=== PATIENT | male | born 1940 | race Caucasian/White ===

== ENCOUNTER 2017-05-03 20:46 | Inpatient (IN) | payer MEDICAID, MEDICARE ==
[2017-05-03 23:06] LABS: Hematocrit 41 % (42-52); Hemoglobin 13.8 g/dl (14.0-18.0); Mean Corpuscular HGB Conc 34 g/dl (31-36); Mean Corpuscular Hemoglobin 31 pg (27-31); Mean Corpuscular Volume 91 fL (80-94); Mean Platelet Volume 8 um3 (7.4-10.4); Red Blood Count 4.48 10^6/ul (4.0-5.4); Red Cell Distribution Width 15 % (10.5-15); White Blood Count 7.9 10^3/ul (3.5-10.8)
[2017-05-03 23:20] LABS: BUN/Creatinine Ratio 31.4 (8-20); Calcium 9.7 mg/dL (8.6-10.3); EGFR African American 88.3 (>60); EGFR Non-African American 68.7 (>60); Globulin 2.6 g/dL (2-4); Magnesium 2.3 mg/dL (1.9-2.7); Potassium 3.7 mmol/L (3.5-5.0); Total Bilirubin 0.8 mg/dL (0.2-1.0); Total Protein 6.6 g/dL (6.4-8.9)
[2017-05-03 23:29] LABS: Troponin I 0.04 ng/mL (<0.04)
[2017-05-03 23:30] LABS: TSH (Thyroid Stimulating Horm) 0.52 mcIU/mL (0.34-5.60)
[2017-05-03] MEDS ORDERED: Ondansetron INJ* 2 MG/ML VIAL IV ONE (23:58)
[2017-05-03] MEDS ORDERED: NS 0.9% 1000 ML* 1,000 ML IV ONE (23:58)
[2017-05-03] MEDS ORDERED: Pantoprazole IV* 40 MG IV ONE (23:59)
[2017-05-04] MEDS ORDERED: Iohexol 300* (CONTRAST) 10 ML SDV IV ONE (00:41)
[2017-05-04 03:07] LABS: Urine Bacteria Absent (Absent); Urine Bilirubin Negative (Negative); Urine Glucose Negative (Negative); Urine Nitrite Negative (Negative)
[2017-05-04 03:18] LABS: Troponin I 0.07 ng/mL (<0.04)
--- NOTE | 2017-05-04 04:36 | ED ---
Dave Gao Benjamin, scribed for Lorna Haynes MD on 05/04/17 at 0023 . Complex/Multi-Sys Presentation - HPI Summary HPI Summary: 77yo male c/o unable to swallow and keep things down. Symptoms started since December and has been gradually getting worse. Pt also reports weight loss of 20lb since December and isnt making much stool. FHx of colon CA. 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 Negative: Nausea, Vomiting - Allergies/Home Medications Allergies/Adverse Reactions: Allergies Allergy/AdvReac Type Severity Reaction Status Date / Time No Known Allergies Allergy Verified 05/03/17 21:01 Home Medications: Home Medications NK [No Home Medications Reported] 05/03/17 [History Confirmed 05/03/17] PMH/Surg Hx/FS Hx/Imm Hx Infectious Disease History: No Infectious Disease History: Denies: Traveled Outside the [place] in Last 30 Days - Family History Known Family History: Positive: Other - colon CA - Social History Occupation: Retired Lives: With Family Alcohol Use: Occasionally Substance Use Type: Reports: None Smoking Status (MU): Unknown if Ever Smoked Review of Systems Positive: Other - recent significant weight loss Eyes: Negative ENT: Other - unable to swallow Cardiovascular: Negative Respiratory: Negative Positive: Other - constipation; unable to keep things down. Negative: Diarrhea , Nausea Genitourinary: Negative Positive: no symptoms reported Musculoskeletal: Negative Skin: Negative Positive: Weakness Psychological: Normal All Other Systems Reviewed And Are Negative: Yes Physical Exam Triage Information Reviewed: Yes Vital Signs On Initial Exam: Initial Vitals Temp Pulse Resp BP Pulse Ox 97.1 F 90 16 105/85 99 05/03/17 20:58 05/03/17 20:58 05/03/17 20:58 05/03/17 20:58 05/03/17 20:58 Vital Signs Reviewed: Yes Appearance: Positive: Well-Appearing, No Pain Distress, Cachectic Skin: Positive: Warm, Skin Color Reflects Adequate Perfusion, Dry Head/Face: Positive: Normal Head/Face Inspection Eyes: Positive: EOMI, JULIANNE, Conjunctiva Clear ENT: Positive: Normal ENT inspection, Hearing grossly normal Neck: Positive: Supple, Nontender Respiratory/Lung Sounds: Positive: Clear to Auscultation, Breath Sounds Present Cardiovascular: Positive: RRR, Pulses are Symmetrical in both Upper and Lower Extremities Abdomen Description: Positive: Nontender, Soft Bowel Sounds: Positive: Present Musculoskeletal: Positive: Strength/ROM Intact Neurological: Positive: Sensory/Motor Intact, Alert, Oriented to Person Place, Time Psychiatric: Positive: Affect/Mood Appropriate - Dannie Coma Scale Coma Scale Total: 15 Diagnostics - Vital Signs Vital Signs Temp Pulse Resp BP Pulse Ox 05/03/17 21:02 97.1 F 90 16 105/85 99 05/03/17 20:58 97.1 F 90 16 105/85 99 - Laboratory Lab Results: Lab Results 05/03/17 05/03/17 05/03/17 Range/Units 22:52 22:52 22:52 WBC 7.9 (3.5-10.8) 10^3/ul RBC 4.48 (4.0-5.4) 10^6/ul Hgb 13.8 L (14.0-18.0) g/dl Hct 41 L (42-52) % MCV 91 (80-94) fL MCH 31 (27-31) pg MCHC 34 (31-36) g/dl RDW 15 (10.5-15) % Plt Count 325 (150-450) 10^3/ul MPV 8 (7.4-10.4) um3 Neut % (Auto) 76.8 (38-83) % Lymph % (Auto) 16.4 L (25-47) % Luce % (Auto) 6.0 (1-9) % Eos % (Auto) 0.2 (0-6) % Baso % (Auto) 0.6 (0-2) % Absolute Neuts (auto) 6.1 (1.5-7.7) 10^3/ul Absolute Lymphs (auto) 1.3 (1.0-4.8) 10^3/ul Absolute Monos (auto) 0.5 (0-0.8) 10^3/ul Absolute Eos (auto) 0 (0-0.6) 10^3/ul Absolute Basos (auto) 0 (0-0.2) 10^3/ul Absolute Nucleated RBC 0 10^3/ul Nucleated RBC % 0 Sodium 141 (133-145) mmol/L Potassium 3.7 (3.5-5.0) mmol/L Chloride 104 (101-111) mmol/L Carbon Dioxide 24 (22-32) mmol/L Anion Gap 13 H (2-11) mmol/L BUN 33 H (6-24) mg/dL Creatinine 1.05 (0.67-1.17) mg/dL Est GFR ( Amer) 88.3 (>60) Est GFR (Non-Af Amer) 68.7 (>60) BUN/Creatinine Ratio 31.4 H (8-20) Glucose 108 H (70-100) mg/dL Lactic Acid 1.2 (0.5-2.0) mmol/L Calcium 9.7 (8.6-10.3) mg/dL Magnesium 2.3 (1.9-2.7) mg/dL Total Bilirubin 0.80 (0.2-1.0) mg/dL AST 17 (13-39) U/L ALT 16 (7-52) U/L Alkaline Phosphatase 38 (34-104) U/L Troponin I 0.04 H* (<0.04) ng/mL Total Protein 6.6 (6.4-8.9) g/dL Albumin 4.0 (3.2-5.2) g/dL Globulin 2.6 (2-4) g/dL Albumin/Globulin Ratio 1.5 (1-3) TSH 0.52 (0.34-5.60) mcIU/mL Result Diagrams: 05/03/17 22:52 05/03/17 22:52 Lab Statement: Any lab studies that have been ordered have been reviewed, and results considered in the medical decision making process. - CT CTW A/P CT Interpretation: Positive (See Comments) - Diffuse esophageal distention with debris and contrast may be secondary to achalasia or an obstructing mass at the GE junction. Follow up with endoscopy is recommended. Necrotic appearing portacaval lymph node is very suspicious for metastasis. Old granulomatous disease. Multiple nonobstructing bilateral renal stones. Small hepatic and splenic hypodensities are not clearly cysts, and can be further evaluated with Ultrasound there. CT Interpretation Completed By: Radiologist - ED physician has reviewed this radiology report and agrees. Complex Multi-Symp Course/Dx Course Of Treatment: Reviewed pts medication and allergy lists. Blood pressure noted. Discussed with Dr. Boateng (Hospitalist) at [address] Cash(GI) at 0414 hour. - Diagnoses Provider Diagnoses: Esophageal dilatation Discharge - Discharge Plan Condition: Stable Disposition: ADMITTED TO [facility] documentation as recorded by the Dave chance Benjamin accurately reflects the service I personally performed and the decisions made by me, Lorna Haynes MD.
--- NOTE | 2017-05-04 04:53 | HP ---
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 He does admit to some intermittent epigastric discomfort, but no distinct relation to activity or eating. He if very stoic and evasive in his answers. He states at his peak he weighted ~80kg, but is now ~50kg. He cannot state over what time frame this weight loss has occurred. His nephew is present and offers that his eating problems were noticed around December and have accelerated over the past 2 months. Mr Obregon denies exertional chest pain, SOB, nausea, and sweats. He currently denies discomfort. 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 Father passed in his 80s of lung CA. Sister: healthy ROS: as above, otherwise reviewed and all were negative vitals: Vital Signs Temp 36.2 C 05/03/17 21:02 Pulse 60 05/04/17 06:00 Resp 16 05/03/17 21:02 BP 113/66 05/04/17 06:00 Pulse Ox 98 05/04/17 06:00 Intake & Output 05/03/17 05/03/17 05/04/17 11:59 23:59 11:59 Intake Total 1000 Balance 1000 Weight 51.664 kg 51.256 kg Intake: IV Fluids 1000 Constitutional: NAD, normally developed, cachectic elderly white male HEENM: atraumatic; sclera/conjunctiva: non-icteric/clear; blephara: sunken; hearing: clinically intact; oropharynx: clear, mucosa tacky Neck: soft tissue: non-tender; thyroid: normal Pulmonary: clear to auscultation bilaterally, good aeration, no accessory muscle use CV: RR/RR, normal S1S2, no carotid bruit, no jugular venous distention, 2+ B DP/ PT, no edema Abdominal: soft, non-distended, diffuse mild discomfort, no rebound/guarding/ rigidity, normoactive bowel sounds, no hepatosplenomegaly or masses, no costovertebral angle tenderness Musculoskeletal: general: grossly intact; gait: stable Integumental: normal appearance and texture of exposed skin Psychiatric orientation: AA&O to PPS affect: flat/stoic mood: suspicious eye contact: fair to good content: evasive responses: mild to moderately slowed insight: fair to poor Testing: Lab Results 05/03/17 05/03/17 05/03/17 Range/Units 22:52 22:52 22:52 WBC 7.9 (3.5-10.8) 10^3/ul RBC 4.48 (4.0-5.4) 10^6/ul Hgb 13.8 L (14.0-18.0) g/dl Hct 41 L (42-52) % MCV 91 (80-94) fL MCH 31 (27-31) pg MCHC 34 (31-36) g/dl RDW 15 (10.5-15) % Plt Count 325 (150-450) 10^3/ul MPV 8 (7.4-10.4) um3 Neut % (Auto) 76.8 (38-83) % Lymph % (Auto) 16.4 L (25-47) % [place] % (Auto) 6.0 (1-9) % Eos % (Auto) 0.2 (0-6) % Baso % (Auto) 0.6 (0-2) % Absolute Neuts (auto) 6.1 (1.5-7.7) 10^3/ul Absolute Lymphs (auto) 1.3 (1.0-4.8) 10^3/ul Absolute Monos (auto) 0.5 (0-0.8) 10^3/ul Absolute Eos (auto) 0 (0-0.6) 10^3/ul Absolute Basos (auto) 0 (0-0.2) 10^3/ul Absolute Nucleated RBC 0 10^3/ul Nucleated RBC % 0 Sodium 141 (133-145) mmol/L Potassium 3.7 (3.5-5.0) mmol/L Chloride 104 (101-111) mmol/L Carbon Dioxide 24 (22-32) mmol/L Anion Gap 13 H (2-11) mmol/L BUN 33 H (6-24) mg/dL Creatinine 1.05 (0.67-1.17) mg/dL Est GFR ( Amer) 88.3 (>60) Est GFR (Non-Af Amer) 68.7 (>60) BUN/Creatinine Ratio 31.4 H (8-20) Glucose 108 H (70-100) mg/dL Lactic Acid 1.2 (0.5-2.0) mmol/L Calcium 9.7 (8.6-10.3) mg/dL Magnesium 2.3 (1.9-2.7) mg/dL Total Bilirubin 0.80 (0.2-1.0) mg/dL AST 17 (13-39) U/L ALT 16 (7-52) U/L Alkaline Phosphatase 38 (34-104) U/L Troponin I 0.04 H* (<0.04) ng/mL Total Protein 6.6 (6.4-8.9) g/dL Albumin 4.0 (3.2-5.2) g/dL Globulin 2.6 (2-4) g/dL Albumin/Globulin Ratio 1.5 (1-3) TSH 0.52 (0.34-5.60) mcIU/mL Urine Color Urine Appearance Urine pH (5-9) Ur Specific [place] (1.010-1.030) Urine Protein (Negative) Urine Ketones (Negative) Urine Blood (Negative) Urine Nitrate (Negative) Urine Bilirubin (Negative) Urine Urobilinogen (Negative) Ur Leukocyte Esterase (Negative) Urine WBC (Auto) (Absent) Urine RBC (Auto) (Absent) Urine Bacteria (Absent) Hyaline Casts (Absent) Urine Glucose (Negative) 05/04/17 05/04/17 05/04/17 Range/Units 02:41 02:51 06:26 WBC (3.5-10.8) 10^3/ul RBC (4.0-5.4) 10^6/ul Hgb (14.0-18.0) g/dl Hct (42-52) % MCV (80-94) fL MCH (27-31) pg MCHC (31-36) g/dl RDW (10.5-15) % Plt Count (150-450) 10^3/ul MPV (7.4-10.4) um3 Neut % (Auto) (38-83) % Lymph % (Auto) (25-47) % [place] % (Auto) (1-9) % Eos % (Auto) (0-6) % Baso % (Auto) (0-2) % Absolute Neuts (auto) (1.5-7.7) 10^3/ul Absolute Lymphs (auto) (1.0-4.8) 10^3/ul Absolute Monos (auto) (0-0.8) 10^3/ul Absolute Eos (auto) (0-0.6) 10^3/ul Absolute Basos (auto) (0-0.2) 10^3/ul Absolute Nucleated RBC 10^3/ul Nucleated RBC % Sodium (133-145) mmol/L Potassium (3.5-5.0) mmol/L Chloride (101-111) mmol/L Carbon Dioxide (22-32) mmol/L Anion Gap (2-11) mmol/L BUN (6-24) mg/dL Creatinine (0.67-1.17) mg/dL Est GFR ( Amer) (>60) Est GFR (Non-Af Amer) (>60) BUN/Creatinine Ratio (8-20) Glucose (70-100) mg/dL Lactic Acid (0.5-2.0) mmol/L Calcium (8.6-10.3) mg/dL Magnesium (1.9-2.7) mg/dL Total Bilirubin (0.2-1.0) mg/dL AST (13-39) U/L ALT (7-52) U/L Alkaline Phosphatase (34-104) U/L Troponin I 0.07 H* 0.35 H* (<0.04) ng/mL Total Protein (6.4-8.9) g/dL Albumin (3.2-5.2) g/dL Globulin (2-4) g/dL Albumin/Globulin Ratio (1-3) TSH (0.34-5.60) mcIU/mL Urine Color Yellow Urine Appearance Cloudy Urine pH 5.0 (5-9) Ur Specific [place] 1.040 H (1.010-1.030) Urine Protein Negative (Negative) Urine Ketones 1+ H (Negative) Urine Blood 1+ H (Negative) Urine Nitrate Negative (Negative) Urine Bilirubin Negative (Negative) Urine Urobilinogen Negative (Negative) Ur Leukocyte Esterase Negative (Negative) Urine WBC (Auto) Trace(0-5/hpf) (Absent) Urine RBC (Auto) 3+(>10/hpf) H (Absent) Urine Bacteria Absent (Absent) Hyaline Casts Present H (Absent) Urine Glucose Negative (Negative) ECG, personally reviewed: NSR rate 67, no ischemia, non-specific infero-lateral ST-T flattening CT chest/abd/pel W, personally reviewed: IMPRESSION: Diffuse esophageal distention with debris and contrast may be secondary to achalasia or an obstructing mass at the GE junction. Follow up with endoscopy is recommended. Necrotic appearing portacaval lymph node is very suspicious for metastasis. Old granulomatous disease. Multiple non-obstructing bilateral renal stones. Small hepatic and splenic hypodensities are not clearly cysts, and can be further evaluated with ultrasound. Impression: 77M with esophagogastric obstruction ? 2nd achalasia vs tumor with necrotic appearing portacaval lymph node highly suspicious for metastasis DIAGNOSIS & PLAN Primary esophagogastric obstruction ? 2nd achalasia vs tumor : necrotic appearing portacaval lymph node highly suspicious for metastasis : NPO : IVFs : GI consult in AM : supportive care elevating troponin : denies cardiac complaint : signed out to Aline Dunne MD malnutrition : nutrition consult : check pre-albumin Secondary seizure disorder : convert PO levetiracetam to IV Admission Rational: inpatient for a very patient at risk of rapid/terminal decompensation; inappropriate for outpatient setting DVTp: SCDs Code Status: full HCP: sister
[2017-05-04] MEDS ORDERED: LORazepam INJ* 2 MG/ML 1 ML VIAL IV PRN (05:52)
[2017-05-04] MEDS ORDERED: Ondansetron INJ* 2 MG/ML VIAL IV PRN (05:52)
[2017-05-04] MEDS ORDERED: Albuterol 2.5 MG/3 ML NEB.SOL* (0.083%) INH PRN (05:52)
--- NOTE | 2017-05-04 08:37 | RAD ---
INDICATION: 20 pound weight loss, difficulty eating. COMPARISON: There are no prior studies available for comparison. TECHNIQUE: A CT scan of the chest, abdomen and pelvis was performed with intravenous and oral contrast following intravenous injection of 68 ml of Omnipaque 300 nonionic contrast. Contiguous axial sections were obtained from the lung apices through the symphysis pubis. Images were reconstructed in the coronal and sagittal planes. FINDINGS: The lungs are hyperinflated. There is a 0.8 cm nodule present in the right upper lobe which is calcified most consistent with old granulomatous disease. There is a small faint reticular nodular infiltrate in the right middle lobe. There is a calcified 0.6 cm nodule in the left lower lobe also consistent with old granulomatous disease. There are calcified mediastinal lymph nodes in the precarinal region and in the right hilum also consistent with old granulomatous disease. No significant enlarged mediastinal or hilar lymph nodes are seen. There are multiple bilateral thyroid nodules measuring up to 1.8 cm in size. The esophagus is diffusely distended and filled with contrast and debris. The distal esophageal wall is thickened at the gastroesophageal junction. Differential diagnosis would include a distal esophageal mass versus achalasia. Recommend endoscopy. The heart is within normal limits in size. No pericardial effusion is present. The aorta is slightly tortuous. No aneurysm is present. There is mild calcific plaque. The liver and spleen are normal in size. There are couple small hypodense lesions in the left hepatic lobe measuring up to 7 mm in size which are too small to characterize by CT possibly representing cysts. There is a small 0.5 cm hypodense splenic lesion also possibly representing a cyst although nonspecific. No calcified gallstones are seen. There is a 2.1 x 1.8 cm cystic lesion present within the pancreatic head. No pancreatic ductal distention is present. The kidneys and adrenal glands are normal in size. There are multiple bilateral renal calculi measuring up to 1 cm in size in the right kidney. No hydronephrosis is seen. There are several small bilateral renal cysts. In addition there is a hyperdense nodule arising laterally from the right kidney at the junction of the mid and lower poles measuring 1.2 cm in size. This would be most consistent with a complex cyst or solid nodule. The prostate gland is enlarged measuring 5.4 cm in transverse dimension. The aorta is normal in caliber and there is mild calcific plaque present. No significant enlarged retroperitoneal lymph nodes are seen. The stomach, small and large bowel appear nondistended. There is moderate descending and sigmoid diverticulosis. There is no evidence for diverticulitis or colitis. The patient is status post appendectomy by history. No free intraperitoneal air or fluid is seen. There are multiple old left posterior lateral rib fractures. There is an old fracture of the manubrium. There are old fractures of upper and lower dorsal vertebral bodies. There is an old [id number] compression fracture of the inferior endplate of the L2 vertebral body. IMPRESSION: 1. DIFFUSE DILATATION OF THE ESOPHAGUS TO THE LEVEL OF THE GASTROESOPHAGEAL JUNCTION. AT THAT LEVEL THERE IS AN ESOPHAGEAL WALL THICKENING. DIFFERENTIAL DIAGNOSIS WOULD INCLUDE AN ESOPHAGEAL MASS VERSUS ACHALASIA. RECOMMEND ENDOSCOPY FOR FURTHER EVALUATION. 2. MULTIPLE BILATERAL THYROID NODULES. RECOMMEND A FOLLOW-UP THYROID ULTRASOUND FOR FURTHER EVALUATION. 3. FINDINGS CONSISTENT WITH OLD GRANULOMATOUS DISEASE. 4. SMALL HYPODENSE HEPATIC AND SPLENIC LESIONS TOO SMALL TO CHARACTERIZE BY CT POSSIBLY REPRESENTING CYSTS. RECOMMEND A FOLLOW-UP HEPATIC AND SPLENIC ULTRASOUND FOR FURTHER EVALUATION. 5. CYSTIC LESION IN THE PANCREATIC HEAD. RECOMMEND AN MRI OF THE PANCREAS WITHOUT AND WITH CONTRAST FOR FURTHER EVALUATION. 6. MULTIPLE BILATERAL NONOBSTRUCTING RENAL CALCULI. 7. HYPERDENSE RIGHT RENAL LESION CONSISTENT WITH A COMPLEX CYST OR SOLID ABNORMALITY. RECOMMEND A RENAL ULTRASOUND FOR FURTHER EVALUATION.
[2017-05-04] MEDS: Famotidine IV* 10 MG/ML 2 ML (20 mg) IV SLOW PU SCH ×2 (10:33→22:34)
--- NOTE | 2017-05-04 12:51 | ECHO ---
Patient: ERIC BA [facility] Rec#: [id number] : 1940 Date: 05/04/2017 Age: 77y Height: 177.8 cm / 70.0 in Weight: 51.3 kg / 113.1 lbs Sex: M BSA: 1.6 Room#: [facility] Admit Date#: 05/04/2017 Type: Inpatient Referring: Joseph Dunne MD Reading: Bert Estrada MD Senior Power Scheduler: Radha Alcantara RN RDCS CC: Esther Montano MD Transthoracic Echocardiogram Indication: Elevated troponin level BP: 113/66 HR: 52 Rhythm: Bradycardia Findings History: Seizure disorder, esophagogastric obstruction secondary to achalasia vs. tumor, malnutrition Technical Comments: The study quality is fair. The study is technically limited due to patient body habitus. The study is technically limited due to the patient's smoking history. Completed at 1005. Left Ventricle: The left ventricular chamber size is normal. There is increased basal septal hypertrophy noted without evidence of an increased gradient across the left ventricular outflow tract. Global left ventricular wall motion and contractility are within normal limits. Left ventricular systolic function is at the lower limits of normal. The estimated ejection fraction is 50-55%. There is no consistent Doppler evidence of clinically significant diastolic dysfunction. Left Atrium: The left atrial chamber size is normal. Right Ventricle: The right ventricular cavity size is normal. The right ventricular global systolic function is low normal. Right Atrium: The right atrium is slightly dilated. Aortic Valve: The aortic valve is trileaflet. The aortic valve leaflets are mildly thickened. There is a trace of aortic regurgitation. There is no evidence of aortic stenosis. Mitral Valve: The mitral valve leaflets are mildly thickened. There is mild to moderate mitral regurgitation. There is no evidence of mitral stenosis. Tricuspid Valve: The tricuspid valve leaflets are normal. There is mild to moderate tricuspid regurgitation. No pulmonary hypertension is noted. There is no tricuspid stenosis. Pulmonic Valve: The pulmonic valve appears normal. There is a trace pulmonic regurgitation. There is no pulmonic stenosis. Pericardium: There is no significant pericardial effusion. Aorta: There is no dilatation of the ascending aorta. There is no dilatation of the aortic arch. There is no dilation of the aortic root. Pulmonary Artery: The main pulmonary artery appears normal. Venous: The inferior vena cava appears normal in size. There is a greater than 50% respiratory change in the inferior vena cava dimension. Summary: There was not any prior study for comparison. Conclusions The left ventricular chamber size is normal. There is increased basal septal hypertrophy noted without evidence of an increased gradient across the left ventricular outflow tract. Global left ventricular wall motion and contractility are within normal limits. Left ventricular systolic function is at the lower limits of normal. The estimated ejection fraction is 50-55%, focal relative hypokinesis of distal anterior wall in A2C only not confirmed in other images. The right atrium is slightly dilated. There is a trace of aortic regurgitation. There is mild to moderate mitral regurgitation. There is mild to moderate tricuspid regurgitation. There is a trace pulmonic regurgitation. Measurements Name Value Normal Range RVDdMajor (2D) 4 cm (2.2 - 4.4) RAd ISD 4CH 4.4 cm (3.4 - 4.9) RA (A4C)W 4.8 cm (2.9 - 4.6) IVSd (2D) 0.9 cm (0.6 - 1) LVPWd (2D) 0.9 cm (0.6 - 1) LVIDd (2D) 3.8 cm (3.6 - 5.4) LVIDs (2D) 2.9 cm - LV FS (2D) 24 % (25 - 45) Aortic Annulus 2.3 cm (1.4 - 2.6) Ao root diameter (2D) 3.4 cm (2.1 - 3.5) Ascending Ao 3.3 cm (2.1 - 3.4) Aortic arch 3 cm (1.8 - 3.4) LA dimension (AP) 2D 2.6 cm (2.3 - 3.8) LAd ISD 4CH 3.1 cm (2.9 - 5.3) LA ISD 4CH W 5 cm (2.5 - 4.5) Name Value Normal Range LA ESV SP 4CH (A/L) 54 ml - LA ESV SP 2CH (A/L) 23 ml - LA ESV BP (A/L) 40 ml - LA ESV BP (A/L) index 24.5 ml/m2 - LA ESV SP 4CH (MOD) 37 ml - LA ESV SP 2CH (MOD) 18 ml - Name Value Normal Range MV E-wave Vmax 0.76 m/sec - MV deceleration time 267 msec - MV A-wave Vmax 0.65 m/sec - MV E:A ratio 1.2 ratio - LV septal e' Vmax 0.07 m/sec - LV lateral e' Vmax 0.1 m/sec - LV E:e' septal ratio 10.9 ratio - LV E:e' lateral ratio 7.6 ratio - Name Value Normal Range AV Vmax 1.2 m/sec - AV VTI 31.6 cm - AV peak gradient 5.8 mmHg - AV mean gradient 3.1 mmHg - LVOT Vmax 0.86 m/sec - LVOT VTI 18.5 cm - LVOT peak gradient 2.9 mmHg - LVOT mean gradient 1.2 mmHg - BRYAN Vmax 0.57 m/sec - Name Value Normal Range TR Vmax 2.5 m/sec - TR peak gradient 25 mmHg - RAP 3 mmHg - RVSP 28 mmHg - IVC diameter 2 cm - Name Value Normal Range PV Vmax 0.85 m/sec -
[2017-05-04] MEDS: D5W 1/2 NS KCl 20 Meq 1000 ML* 1,000 ML IV SCH ×2 (13:40→23:37)
[2017-05-04] MEDS ORDERED: Midazolam* 1 MG/ML 10 ML VIAL (10 MG) ONE (17:08)
[2017-05-04] MEDS ORDERED: fentaNYL* 50 MCG/ML 2 ML VIAL (100 MCG VIAL) ONE ×2 (17:08→18:41)
[2017-05-04] MEDS ORDERED: Midazolam* 1 MG/ML 5 ML VIAL (5 MG) ONE (18:41)
[2017-05-04] MEDS ORDERED: KETAMINE HCL* 50 MG/ML 10 ML VIAL ONE (18:41)
[2017-05-04] MEDS ORDERED: Atracurium* 10 MG/ML 10 ML VIAL ONE (18:42)
[2017-05-04] MEDS ORDERED: Lidocaine 2% PF* 10 ML AMP ONE (18:43)
[2017-05-04] MEDS ORDERED: Propofol* 10 MG/ML 20 ML BTL IV PUSH ONE ×2 (18:43→20:55)
--- NOTE | 2017-05-04 20:23 | PN ---
Progress Note - Progress Note Date of Service: 05/04/17 Note: Anesthesia called requesting re-evaluation regarding Mr Obregon's abnormal troponins. Mr Obregon is seen in pre-op. Again, he denies any recent or active cardiac symptoms. He was walking 1-2 miles up until ~1 month ago when progressive generalized weakness began preventing him. He denies any exertional symptomotology, no chest pain, SOB, palpitations, light-headedness, abnormal sweating, or nausea. While he has had some sporadic non-exertional non- radiating epigastric pressure, this is expected with his degree of esophageal obstruction. Additionally, as the troponin's were drawn for non-cardiac pain their pre-test relevance was essentially non-diagnostic. He has had 4 troponins , the 3rd and highest was 0.3 which completely spontaneously resolved after 2hours suggesting it was a lab error. The other 3 troponin's were reasonably compatible with one another and trivially elevated. His ECHO shows no clinically significant wall-motion or valvular abnormalities. general: cachectic white male NAD lung: CTAB, diminished B, poor inspiratory effort with request CV: RRR, normal S1S2 abd: SNTND extremities: W&D ECHO: Conclusions: The left ventricular chamber size is normal. There is increased basal septal hypertrophy noted without evidence of an increased gradient across the left ventricular outflow tract. Global left ventricular wall motion and contractility are within normal limits. Left ventricular systolic function is at the lower limits of normal. The estimated ejection fraction is 50-55%, focal relative hypokinesis of distal anterior wall in A2C only not confirmed in other images. The right atrium is slightly dilated. There is a trace of aortic regurgitation. There is mild to moderate mitral regurgitation. There is mild to moderate tricuspid regurgitation. There is a trace pulmonic regurgitation. Assessment: plan esophageal GE junction stricture: achalasia vs benign stricture vs tumor : benefits of EGD under anesthesia out weight the risks : no further cardiac evaluation is necessary : patient/family advised we could hold and have cardiology see if they preferred , but they would rather proceed : GI & anesthesiology verbally informed of this & pre-procedure preparation continues elevated troponin : non-diagnostic in this setting : ECHO shows no concerning findings : ECG without ischemic changes : patient with good exercise tolerance 1 month ago : no recent or active cardiac symptomotology
[2017-05-04] MEDS ORDERED: Neostigmine Methylsulfate* 2 MG/2 ML SYRINGE ONE (20:55)
[2017-05-04] MEDS ORDERED: Glycopyrrolate IV* 0.2 MG/ML 1 ML VIAL ONE (20:55)
[2017-05-04] MEDS ORDERED: EPHEDrine (Pressors)* 50 MG/ML VIAL ONE (20:55)
[2017-05-04] MEDS ORDERED: fentaNYL* 50 MCG/ML 2 ML VIAL (100 MCG VIAL) IV PRN (22:09)
[2017-05-04] MEDS ORDERED: Morphine INJ* 2 MG/ML 1 ML CARPUJECT IV PRN (22:09)
[2017-05-04] MEDS ORDERED: PROCHLORPERAZINE INJ 5 MG/ML 2 ML VIAL IV PRN (22:09)
[2017-05-04] MEDS ORDERED: Ondansetron INJ* 2 MG/ML VIAL ONE (22:16)
[2017-05-04] MEDS ORDERED: Dexamethasone IV* 4 MG/ML 1 ML (4 MG) ONE (22:16)
[2017-05-04] MEDS ORDERED: Famotidine IV* 10 MG/ML 2 ML (20 mg) ONE (22:30)
--- NOTE | 2017-05-05 01:57 | PN ---
Progress Note - Progress Note Date of Service: 05/05/17 Note: Patient evaluated post-procedure. Nursing assisting up to urinate. Denies complaints and questions.
--- NOTE | 2017-05-05 02:30 | CONS ---
GASTROENTEROLOGY CONSULTATION: DATE OF CONSULT: 05/04/17 PROVIDER: Sagar Boateng MD PRIMARY CARE PHYSICIAN: Esther Montano MD REASON FOR CONSULT: Dysphagia with associated weight loss. HISTORY OF PRESENT ILLNESS: Mr. Obregon is a very pleasant 77-year-old male with past medical history of seizure disorder and family history of colon cancer who presented to [facility] yesterday evening with complaints of progressive dysphasia to solids and liquids with frequent episodes of nausea and vomiting. Patient describes his emesis as "mucousy" liquid. He denies any hematemesis, melena or hematochezia. He admits to progressive symptoms since December of 2016. He states he has lost approximately 30 to 50 pounds since this time (family at bedside admits to 30 pounds over the last few months). He also complains of some intermittent epigastric pain. He denies any family history of gastric malignancies including esophageal, stomach, intestinal cancer, pancreatic or liver cancer. His mother is from colon cancer in her 40s. He denies chest pain, shortness of breath, admits to occasional constipation due to decreased appetite from his dysphagia. He has never had an upper endoscopy and colonoscopy. Upon arrival to the emergency room a CT of his chest, abdomen and pelvis was obtained and revealed diffuse esophageal distention with debris and possible achalasia versus obstructing mass at the GE junction. Necrotic appearing portacaval lymph node was also noted. Upper endoscopy was suggested and Gastroenterology was consulted for further evaluation. PAST MEDICAL HISTORY: Seizure disorder. HOME MEDICATIONS: Include levetiracetam. ALLERGIES: No known drug allergies. PAST SURGICAL HISTORY: Appendectomy, right knee arthroscopy. FAMILY HISTORY: Mother in her 40s from colon cancer. Father in 80s from lung cancer. Reviewed and otherwise negative. SOCIAL HISTORY: Former distant smoker. Distant alcohol use in his 20s. Denies illicit drug use. REVIEW OF SYSTEMS: Pertinent positives and negatives were noted above in the HPI. Otherwise, they were reviewed and were all negative. PHYSICAL EXAM: Vitals: Temperature 98.4, heart rate 57, respiration 10, oxygenation 100% on room air, blood pressure 117/75. Generally, the patient is in no acute distress, cachectic appearing. HEENT: Atraumatic, normocephalic, non- anicteric. Dry mucous membranes. Neck is soft. Pulmonary: Clear to auscultation bilaterally. Cardiovascular Exam: Regular rate and rhythm. Abdominal exam soft, nontender, nondistended. No rebound, guarding or rigidity. Positive bowel sounds in all 4 quadrants. No hepatosplenomegaly, nontender. Musculoskeletal Exam: Grossly intact. Extremities: No pedal edema. DIAGNOSTIC STUDIES/LAB DATA: Sodium 141, potassium 3.7, chloride 104, CO2 24, anion gap 13, BUN 33, creatinine 1.05, calcium 9.7, magnesium 2.3, total bilirubin 0.8, AST is 17, ALT 16, alkaline phosphatase 38, troponin increased from 0.04 to 0.07, 0.35 to 0.03, total protein 6.6. Albumin 4.0, TSH 0.52. CT of the chest, abdomen and pelvis revealed: 1. Diffuse dilation of the esophagus to the level of gastroesophageal junction , possible esophageal mass versus achalasia. 2. Multiple bilateral third nodules. 3. Small hypodense hepatic and splenic lesions. 4. Cystic lesion in the pancreatic head, recommend MRI of the pancreas without and with contrast for further evaluation. IMPRESSION: Mr. Obregon is a very pleasant 77-year-old male who presented with progressive dysphagia to solids and liquids with associated 30 to 40-pound weight loss over the last few months. CT of the chest, abdomen and pelvis revealed esophageal dilation down to GE junction suggestive of possible achalasia and obstructing mass along with a necrotic appearing portacaval lymph node that is highly suspicious for metastasis. PLAN: 1. Progressive dysphagia to solids and liquids with associated weight loss. CT of the chest revealing possible achalasia versus distal obstructing mass at the GE junction, a necrotic appearing portacaval lymph node was also seen on CT. The patient will remain n.p.o. with IV fluids. We will plan for an upper endoscopy after cardiac clearance later this afternoon due to elevated and increasing troponins. 2. Elevated troponins. Discussed with Dr. Dunne and the patient is cleared from cardiac standpoint after reviewal of EKG, normalized troponin, normal TTE, and lack of cardiac symptoms. We will proceed with upper endoscopy later this afternoon under moderate anesthesia. 3. Pancreatic cystic lesion seen on CT. We will need an endoscopic ultrasound of the pancreas with FNA versus MRI of the abdomen for further evaluation in the near future. 4. Small hypodense lesions in the liver and spleen on CT. We will continue to follow with the surveillance ultrasound examinations in the future. 5. Family history of colon cancer. Patient's mother is from colon cancer in her 40s. No previous colonoscopy. Thank you Dr. Boateng for allowing us to participate in the care of your patient. We will continue to follow your patient closely. If you should have any further questions or concerns, please do not hesitate to contact us. Further recommendations will be made pending the results of upper endoscopy later this afternoon. [id number]/[facility] #: [id number] MARICEL
[2017-05-05] MEDS: Famotidine IV* 10 MG/ML 2 ML (20 mg) IV SLOW PU SCH (05:32)
[2017-05-05] MEDS ORDERED: NS 0.9% 500 ML BAG* 500 ML IV ONE (06:30)
[2017-05-05] MEDS: D5W 1/2 NS KCl 20 Meq 1000 ML* 1,000 ML IV SCH (08:27)
--- NOTE | 2017-05-05 11:08 | RAD ---
HISTORY: Obstruction COMPARISONS: CT dated May 04, 2017 TECHNIQUE: A single contrast fluoroscopic study was performed of the esophagus. Thin liquid barium under fluoroscopic observation. Multiple digital spot images were obtained. Total fluoroscopy time is 1.2 minutes. The patient was unable to tolerate prone imaging. FINDINGS: ESOPHAGUS: The esophagus is patulous. No contrast was seen to pass distal to the GE junction the stomach. IMPRESSION: 1. LIMITED STUDY. 2. THE ESOPHAGUS IS PATULOUS. 3. NO CONTRAST IS NOTED TO PASS DISTAL TO THE GE JUNCTION INTO THE STOMACH. 4. PRELIMINARY FINDINGS WERE DISCUSSED WITH DR. CAI APPROXIMATELY 10:45 AM ON 2016. CPT II Codes: 6045F
[2017-05-05] MEDS: D5W 1/2 NS 1000 ML BAG* 1,000 ML IV SCH ×2 (12:09→21:43)
--- NOTE | 2017-05-05 15:23 | PRO ---
GASTROENTEROLOGY OPERATIVE REPORT: DATE OF PROCEDURE: 05/04/17 PROCEDURE: Esophagogastroduodenoscopy to second portion of duodenum. SURGEON: Mayra Escalante DO. ANESTHESIA: General anesthesia. INDICATIONS: Progressive dysphagia to solids and liquids. Weight loss, abnormal CT imaging. HISTORY OF PRESENT ILLNESS: Efrain was a very pleasant 77-year-old male who presents with complaints of progressive dysphagia to solids and liquids. He has had a 30-pound weight loss over the last few months. He was admitted into the hospital for further workup and CT imaging revealed debris within the esophagus suggestive of possible achalasia versus a gastroesophageal junction tumor. Gastroenterology was consulted for further workup and EGD was recommended. FINDINGS: 1. Normal appearing duodenum to the second portion with biopsies. 2. Pangastritis with biopsies from the antrum and body to rule out H. pylori. 3. Mosaic tile like appearance of the gastric mucosa located in the fundus and cardia. 4. Partially obstructive circumferential mass extending from 45 cm to 35 cm of the incisors encompassing the cardia of the stomach and the distal esophagus. Multiple cold forceps biopsies were obtained. 5. White plaque like exudative distal esophagitis with biopsies. 6. Dilated mild and proximal esophagus. 7. Disimpaction of food impaction. PLAN: 1. Will followup with biopsy results. 2. Recommend clear liquid diet for now. May need to further assess nutritional status as he will likely have difficulty eating solid food due to obstructing tumor. 3. These findings were discussed with Dr. Boateng (Hospitalist) and patient 's family (patient's sister) at bedside. 4. Further recommendations will be provided as the patient's clinical course progresses and once the biopsy results have been reviewed. DESCRIPTION OF PROCEDURE: Esophagogastroduodenoscopy was explained in detail to the patient. The risks, benefits, complications, alternatives, and possibilities of missed lesions were explained and understood. Complications included, but were not limited to reaction to anesthesia, aspiration, increased risk of bleeding and perforation. All questions were answered. The patient demonstrated understanding of the conversation and informed consent was obtained. Next, the patient was brought to the endoscopy suite and placed in the left lateral recumbent position where blood pressure, cardiac, and oxygen monitors were applied. The patient was found to be a fit candidate for general anesthesia. Once adequate anesthesia was achieved, a bite block was placed. Next, a standard adult Olympus endoscope was inserted per os under direct visualization. Upon entry into the esophagus. There were large amounts of food debris in the proximal and mid esophagus including solid food and mucous. Aggressive irrigation and suctioning was performed in order to adequately visualize the mucosa and suction the food debris. Almaraz net was used to remove the solid food located in the proximal and mid esophagus. Multiple attempts of food disimpaction were performed by using the Almaraz net endoscopically. Once the food was disimpacted, the mucosa was able to be adequately visualized. Endoscope was further traversed and the distal esophagus was visualized. There was a large partially obstructing circumferential tumor with exudative esophagitis and friable mucosa. The distal esophagus was able to be traversed via an adult endoscope; however, due to the friability of the esophagus, the endoscope was exchanged to a pediatric Olympus endoscope and further evaluation of the gastric area and duodenal was visualized via the pediatric endoscope. There were erythematous changes in the stomach consistent with pangastritis. Cold forceps biopsies from the pediatric forceps were obtained to rule out H. pylori versus malignancy as well the duodenum to the second portion was normal appearing. Biopsies via cold forceps were obtained from here as well. The pediatric endoscope was then withdrawn into the distal esophagus where further biopsies were obtained of the esophageal tumor. The esophageal tumor was measured to be from 45 cm to 35 cm from the incisors revealing that it had extended/infiltrated into the cardia of the stomach. On retroflexion of the stomach, the patient had a normal sling. The pediatric endoscope was then exchanged and an adult Olympus endoscope was re-inserted in order to obtain larger biopsies. Multiple cold forceps biopsies were obtained from the esophageal tumor. Air was then withdrawn from the patient. Endoscope was withdrawn from the patient. The patient tolerated the procedure well. There were no immediate complications. After a period of observation in the recovery room, the patient was transferred back to the medical floor for further evaluation and care. The endoscopic findings were discussed with the patient's family and Dr. Boateng, night Hospitalist regional account director. Further recommendations , will follow as the patient's clinical course progresses. Thank you Dr. Boateng for allowing us to participate in the care of your patient. We will continue to follow the patient closely. If you should have any further questions or concerns, please do not hesitate to contact us. [id number]/[facility] #: [id number] MARICEL
--- NOTE | 2017-05-05 16:37 | PRO ---
GASTROENTEROLOGY OPERATIVE REPORT: DATE OF PROCEDURE: 05/04/17 OPERATIVE PROCEDURE: Esophagogastroduodenoscopy to mid esophagus. SURGEON: Mayra Escalante DO ANESTHESIA: Midazolam 2 mg IV, Fentanyl 50 mcg IV. INDICATION: Progressive dysphagia to solids and liquids, weight loss, abnormal CT imaging. FINDINGS: 1. Extensive amount of food and debris noted in the upper esophagus, unable to be removed due to high risk of aspiration. 2. Dilated proximal and mid esophagus. 3. The procedure was aborted due to high risk of aspiration. RECOMMENDATIONS: 1. Discussed with the anesthesia team. We will perform the EGD under general anesthesia in order to prevent aspiration. 2. The following plan was discussed with the patient, patient's sister and other family members at bedside. They are agreeable to proceed forward with general anesthesia in order to remove the food impaction. This plan was also discussed with Dr. Boateng and he gave cardiac clearance. OPERATIVE PROCEDURE: Esophagogastroduodenoscopy was explained in detail with the patient. The risks, benefits, complications, and possibilities of missed lesions were explained and understood. Complications included but were not limited to reaction to anesthesia, aspiration, increased risk of bleeding, and perforation. All questions were answered. The patient demonstrated understanding of the conversation and informed consent was obtained. Next, the patient was brought to the endoscopy suite, placed in the left lateral recumbent position where blood pressure, cardiac, and oxygen monitors were applied. The patient was found to be a fit candidate for moderate anesthesia. After adequate IV sedation was obtained, a bite block was placed. Next a standard adult Olympus endoscope was inserted per os under direct visualization to the proximal esophagus. Upon entering into the proximal esophagus large amounts of solid food and debris were noted. Attempts to aggressively suction out the debris were unsuccessful. The patient was determined to be at high risk of aspiration. Procedure was aborted. The patient otherwise tolerated the procedure well. There were no immediate complications. After a period of observation, the patient remained in the endoscopy recovery unit in stable condition and awaited transfer to the operating room for the procedure to be performed under general anesthesia. Thank you Dr. Boateng for allowing us to participate in the care of your patient. We will continue to follow your patient closely. If you should have any further questions or concerns, please do not hesitate to contact us. [id number]/[facility] #: [id number] [facility] HOSPITALGonzalo
[2017-05-05] MEDS ORDERED: TPN* 24 HR with Dextrose 50% Water* 500 ML, Amino Acid Infusion 10%* 850 ML, Sterile Wa... CENTR SCH ×14 (17:00)
[2017-05-05] MEDS: TPN* 24 HR with D10W 1000 ML BAG* 1,000 ML, Amino Acid Infusion 10%* 850 ML, Sterile Wa... IV SCH ×14 (17:05)
--- NOTE | 2017-05-06 12:30 | PN ---
Progress Note - Progress Note Date of Service: 05/06/17 - Gastroenterology Note: Patient seen and examined. No new overnight issues. Has more energy since receiving PPN. No current complaints. Denies abdominal/chest pain. No nausea/ emesis. No appetite today. No fevers/chills. No bowel movement. Vital Signs: Temp Pulse Resp BP Pulse Ox 97.9 F 48 18 92/50 97 05/06/17 04:19 05/06/17 04:19 05/06/17 08:00 05/06/17 04:19 05/06/17 04:19 No new labs for today. Physical Examination: GENERAL: AAOx3, NAD, cachectic-appearing. HEENT: Dry MMM. CV: RRR PULM: CTAB ABDOMEN: soft, nt/nd. BS x 4 quadrants. EXTREMITIES: no lower extremity edema. A/P: 77 yo male who presented with progressive dysphasia to solids and liquids and found to have on EGD a circumferential obstructing distal esophageal tumor. Path is pending. PPN was started yesterday for malnutrition. 1. Circumferential obstructing distal esophageal tumor s/p EGD with biopsies ~PPN initiated yesterday. ~PICC line to be placed on Monday for TPN. ~Awaiting biopsies from EGD. 2. Pancreatic cyst ~Not a candidate for EUS of pancreas with FNA at this time due to obstructing esophageal tumor. Discussed with nursing staff and family at bedside. Thank you for allowing us to participate in the care of your patient. Please do not hesitate to contact us for further questions or concerns. Mayra Escalante D.O.
--- NOTE | 2017-05-06 14:47 | PN ---
Subjective Date of Service: 05/06/17 Interval History: Feels better today. No new c/o. No pain. Objective Active Medications: Acetaminophen (Tylenol Supp*) 650 mg CA Q6H PRN PRN Reason: FEVER/PAIN Albuterol (Ventolin 2.5 Mg/3 Ml Neb.Angeli*) 2.5 mg INH Q2H PRN PRN Reason: SOB/WHEEZING Levetiracetam 750 mg/ Sodium (Chloride) 107.5 mls @ 430 mls/hr IVPB DAILY [facility] Last Admin: 05/06/17 09:02 Dose: 430 mls/hr Levetiracetam 1,500 mg/ Sodium (Chloride) 115 mls @ 460 mls/hr IVPB DAILY@1800 [facility] Last Admin: 05/05/17 20:26 Dose: 460 mls/hr Dextrose 1,000 ml/ Amino Acids 850 ml/ Sterile Water 150 ml/Fat Emulsion Intravenous 500 ml/ Sodium Chloride 100 meq/Potassium Chloride 50 meq/Potassium Phosphate 15 mmole/Calcium Gluconate 15 meq/Magnesium Sulfate 10 meq/ Multivitamins 10 ml/ Trace Metals 3 ml/ Phytonadione 0.2 mg/ Famotidine 40 mg/ Nutrition (Parenteral) 2,606.821 mls @ 108.677 mls/hr IV 1700 [facility] Stop: 05/09/17 16:59 Last Admin: 05/05/17 17:05 Dose: 108.677 mls/hr Lorazepam (Ativan Inj*) 0.5 mg IV BEDTIME PRN PRN Reason: SLEEP Ondansetron HCl (Zofran Inj*) 4 mg IV Q6H PRN PRN Reason: NAUSEA Last Admin: 05/05/17 09:46 Dose: 4 mg Vital Signs 05/05/17 05/05/17 05/05/17 15:43 16:00 20:00 Temperature 98.1 F Pulse Rate 53 Respiratory 16 16 Rate Blood Pressure 144/69 (mmHg) O2 Sat by Pulse 99 99 Oximetry 05/05/17 05/05/17 05/06/17 20:30 23:49 04:19 Temperature 97.6 F 97.5 F 97.9 F Pulse Rate 48 52 48 Respiratory 16 18 16 Rate Blood Pressure 131/72 100/54 92/50 (mmHg) O2 Sat by Pulse 99 96 97 Oximetry 0905/06/17 05/06/17 07:30 08:00 12:30 Temperature Pulse Rate 61 Respiratory 18 18 Rate Blood Pressure 128/75 (mmHg) O2 Sat by Pulse 98 Oximetry Oxygen Devices in Use Now: None Appearance: Alert, partly up in bed. In good spirits. Looks comfortable. Respiratory: Symmetrical Chest Expansion and Respiratory Effort, Clear to Auscultation, Clear to Percussion Cardiovascular: NL Sounds; No Murmurs; No JVD, RRR, No Edema, - Extremities: No Edema, No Clubbing, Cyanosis, - Skin: No Rash or Ulcers, No Nodules or Sclerosis, - Neurological: Alert and Oriented x 3, NL Sensation, - - Somewhat vague in his answers. Result Diagrams: 05/03/17 22:52 05/03/17 22:52 Additional Lab and Data: Lab Results 05/03/17 05/03/17 05/03/17 Range/Units 22:52 22:52 22:52 WBC 7.9 (3.5-10.8) 10^3/ul RBC 4.48 (4.0-5.4) 10^6/ul Hgb 13.8 L (14.0-18.0) g/dl Hct 41 L (42-52) % MCV 91 (80-94) fL MCH 31 (27-31) pg MCHC 34 (31-36) g/dl RDW 15 (10.5-15) % Plt Count 325 (150-450) 10^3/ul MPV 8 (7.4-10.4) um3 Neut % (Auto) 76.8 (38-83) % Lymph % (Auto) 16.4 L (25-47) % [place] % (Auto) 6.0 (1-9) % Eos % (Auto) 0.2 (0-6) % Baso % (Auto) 0.6 (0-2) % Absolute Neuts (auto) 6.1 (1.5-7.7) 10^3/ul Absolute Lymphs (auto) 1.3 (1.0-4.8) 10^3/ul Absolute Monos (auto) 0.5 (0-0.8) 10^3/ul Absolute Eos (auto) 0 (0-0.6) 10^3/ul Absolute Basos (auto) 0 (0-0.2) 10^3/ul Absolute Nucleated RBC 0 10^3/ul Nucleated RBC % 0 Sodium 141 (133-145) mmol/L Potassium 3.7 (3.5-5.0) mmol/L Chloride 104 (101-111) mmol/L Carbon Dioxide 24 (22-32) mmol/L Anion Gap 13 H (2-11) mmol/L BUN 33 H (6-24) mg/dL Creatinine 1.05 (0.67-1.17) mg/dL Est GFR ( Amer) 88.3 (>60) Est GFR (Non-Af Amer) 68.7 (>60) BUN/Creatinine Ratio 31.4 H (8-20) Glucose 108 H (70-100) mg/dL Lactic Acid 1.2 (0.5-2.0) mmol/L Calcium 9.7 (8.6-10.3) mg/dL Magnesium 2.3 (1.9-2.7) mg/dL Total Bilirubin 0.80 (0.2-1.0) mg/dL AST 17 (13-39) U/L ALT 16 (7-52) U/L Alkaline Phosphatase 38 (34-104) U/L Troponin I 0.04 H* (<0.04) ng/mL Total Protein 6.6 (6.4-8.9) g/dL Albumin 4.0 (3.2-5.2) g/dL Globulin 2.6 (2-4) g/dL Albumin/Globulin Ratio 1.5 (1-3) TSH 0.52 (0.34-5.60) mcIU/mL Assess/Plan/Problems-Billing Assessment: - Patient Problems (1) Esophageal obstruction Current Visit: Yes Status: Acute Code(s): K22.2 - ESOPHAGEAL OBSTRUCTION SNOMED Code(s): 372622457 Comment: Bx done late on 05/04, results pending. Continue PPN. Convert to TPN when PICC line available (anticipate 05/08). Labs 05/07. (2) Seizure disorder Current Visit: Yes Status: Acute Code(s): G40.909 - EPILEPSY, UNSP, NOT INTRACTABLE, WITHOUT STATUS EPILEPTICUS SNOMED Code(s): 820320668 Comment: Continuje IV levetriacetam. (3) Severe malnutrition Current Visit: Yes Status: Acute Code(s): E43 - UNSPECIFIED SEVERE PROTEIN- CALORIE MALNUTRITION SNOMED Code(s): 14393134 Comment: Severe with 47 lb weight loss, muscle wasting visible, dehydration.
[2017-05-06] MEDS: TPN* 24 HR with D10W 1000 ML BAG* 1,000 ML, Amino Acid Infusion 10%* 850 ML, Sterile Wa... IV SCH ×14 (17:07)
[2017-05-07 05:58] LABS: Hematocrit 37 % (42-52); Hemoglobin 12.7 g/dl (14.0-18.0); Mean Corpuscular HGB Conc 34 g/dl (31-36); Mean Corpuscular Hemoglobin 31 pg (27-31); Mean Corpuscular Volume 90 fL (80-94); Mean Platelet Volume 8 um3 (7.4-10.4); Red Blood Count 4.15 10^6/ul (4.0-5.4); Red Cell Distribution Width 15 % (10.5-15); White Blood Count 4.1 10^3/ul (3.5-10.8)
[2017-05-07 06:07] LABS: BUN/Creatinine Ratio 30.9 (8-20); Calcium 8.9 mg/dL (8.6-10.3); EGFR African American 186.3 (>60); EGFR Non-African American 144.8 (>60); Potassium 3.6 mmol/L (3.5-5.0)
--- NOTE | 2017-05-07 10:52 | PN ---
Subjective Date of Service: 05/07/17 Interval History: Feels better today than yesterday. No pain. No new c/o. Objective Active Medications: Acetaminophen (Tylenol Supp*) 650 mg AL Q6H PRN PRN Reason: FEVER/PAIN Albuterol (Ventolin 2.5 Mg/3 Ml Neb.Angeli*) 2.5 mg INH Q2H PRN PRN Reason: SOB/WHEEZING Levetiracetam 750 mg/ Sodium (Chloride) 107.5 mls @ 430 mls/hr IVPB DAILY [facility] Last Admin: 05/07/17 09:28 Dose: 430 mls/hr Levetiracetam 1,500 mg/ Sodium (Chloride) 115 mls @ 460 mls/hr IVPB DAILY@1800 [facility] Last Admin: 05/06/17 18:01 Dose: 460 mls/hr Dextrose 1,000 ml/ Amino Acids 850 ml/ Sterile Water 150 ml/Fat Emulsion Intravenous 500 ml/ Sodium Chloride 100 meq/Potassium Chloride 50 meq/Potassium Phosphate 15 mmole/Calcium Gluconate 15 meq/Magnesium Sulfate 10 meq/ Multivitamins 10 ml/ Trace Metals 3 ml/ Phytonadione 0.2 mg/ Famotidine 40 mg/ Nutrition (Parenteral) 2,606.821 mls @ 108.677 mls/hr IV 1700 [facility] Stop: 05/09/17 16:59 Last Admin: 05/06/17 17:07 Dose: 108.677 mls/hr Lorazepam (Ativan Inj*) 0.5 mg IV BEDTIME PRN PRN Reason: SLEEP Ondansetron HCl (Zofran Inj*) 4 mg IV Q6H PRN PRN Reason: NAUSEA Last Admin: 05/05/17 09:46 Dose: 4 mg Vital Signs 05/06/17 05/06/17 05/06/17 12:30 15:33 19:11 Temperature 98.3 F Pulse Rate 54 Respiratory 16 18 Rate Blood Pressure 128/75 108/50 (mmHg) O2 Sat by Pulse 98 Oximetry 05/06/17 05/06/17 05/07/17 19:24 23:37 04:01 Temperature 97.4 F 97.4 F Pulse Rate 53 56 59 Respiratory 16 16 16 Rate Blood Pressure 119/74 131/80 111/63 (mmHg) O2 Sat by Pulse 100 100 98 Oximetry Oxygen Devices in Use Now: None Appearance: Alert, partly up in bed. I good spirits. Looks comfortable. Eyes: No Scleral Icterus Extremities: No Edema, No Clubbing, Cyanosis, - Skin: No Rash or Ulcers, No Nodules or Sclerosis, - Neurological: Alert and Oriented x 3, NL Sensation Result Diagrams: 05/07/17 05:40 05/07/17 05:40 Additional Lab and Data: Lab Results 05/03/17 05/03/17 05/03/17 Range/Units 22:52 22:52 22:52 WBC 7.9 (3.5-10.8) 10^3/ul RBC 4.48 (4.0-5.4) 10^6/ul Hgb 13.8 L (14.0-18.0) g/dl Hct 41 L (42-52) % MCV 91 (80-94) fL MCH 31 (27-31) pg MCHC 34 (31-36) g/dl RDW 15 (10.5-15) % Plt Count 325 (150-450) 10^3/ul MPV 8 (7.4-10.4) um3 Neut % (Auto) 76.8 (38-83) % Lymph % (Auto) 16.4 L (25-47) % [place] % (Auto) 6.0 (1-9) % Eos % (Auto) 0.2 (0-6) % Baso % (Auto) 0.6 (0-2) % Absolute Neuts (auto) 6.1 (1.5-7.7) 10^3/ul Absolute Lymphs (auto) 1.3 (1.0-4.8) 10^3/ul Absolute Monos (auto) 0.5 (0-0.8) 10^3/ul Absolute Eos (auto) 0 (0-0.6) 10^3/ul Absolute Basos (auto) 0 (0-0.2) 10^3/ul Absolute Nucleated RBC 0 10^3/ul Nucleated RBC % 0 Sodium 141 (133-145) mmol/L Potassium 3.7 (3.5-5.0) mmol/L Chloride 104 (101-111) mmol/L Carbon Dioxide 24 (22-32) mmol/L Anion Gap 13 H (2-11) mmol/L BUN 33 H (6-24) mg/dL Creatinine 1.05 (0.67-1.17) mg/dL Est GFR ( Amer) 88.3 (>60) Est GFR (Non-Af Amer) 68.7 (>60) BUN/Creatinine Ratio 31.4 H (8-20) Glucose 108 H (70-100) mg/dL Lactic Acid 1.2 (0.5-2.0) mmol/L Calcium 9.7 (8.6-10.3) mg/dL Magnesium 2.3 (1.9-2.7) mg/dL Total Bilirubin 0.80 (0.2-1.0) mg/dL AST 17 (13-39) U/L ALT 16 (7-52) U/L Alkaline Phosphatase 38 (34-104) U/L Troponin I 0.04 H* (<0.04) ng/mL Total Protein 6.6 (6.4-8.9) g/dL Albumin 4.0 (3.2-5.2) g/dL Globulin 2.6 (2-4) g/dL Albumin/Globulin Ratio 1.5 (1-3) TSH 0.52 (0.34-5.60) mcIU/mL Assess/Plan/Problems-Billing Assessment: - Patient Problems (1) Esophageal obstruction Current Visit: Yes Status: Acute Code(s): K22.2 - ESOPHAGEAL OBSTRUCTION SNOMED Code(s): 478197198 Comment: Bx done late on 05/04, results pending. Continue PPN. Convert to TPN when PICC line available (anticipate 05/08). Mild anemia noted. (2) Seizure disorder Current Visit: Yes Status: Acute Code(s): G40.909 - EPILEPSY, UNSP, NOT INTRACTABLE, WITHOUT STATUS EPILEPTICUS SNOMED Code(s): 800016259 Comment: Continuje IV levetriacetam. (3) Severe malnutrition Current Visit: Yes Status: Acute Code(s): E43 - UNSPECIFIED SEVERE PROTEIN- CALORIE MALNUTRITION SNOMED Code(s): 71849062 Comment: Severe with 47 lb weight loss, muscle wasting visible, dehydration.
--- NOTE | 2017-05-07 10:58 | PN ---
Progress Note - Progress Note Date of Service: 05/07/17 - Gastroenterology Note: Patient seen and examined. No new overnight issues. No abdominal pain. No bowel movement. NPO with PPN. No nausea/emesis. Vital Signs: Temp Pulse Resp BP Pulse Ox 97.4 F 59 16 111/63 98 05/06/17 23:37 05/07/17 04:01 05/07/17 04:01 05/07/17 04:01 05/07/17 04:01 Laboratory Results - last 24 hr 05/07/17 05/07/17 05/07/17 05:39 05:40 05:40 WBC 4.1 RBC 4.15 Hgb 12.7 L Hct 37 L MCV 90 MCH 31 MCHC 34 RDW 15 Plt Count 291 MPV 8 Neut % (Auto) 66.9 Lymph % (Auto) 23.0 L Dodge % (Auto) 7.9 Eos % (Auto) 1.3 Baso % (Auto) 0.9 Absolute Neuts (auto) 2.8 Absolute Lymphs (auto) 1.0 Absolute Monos (auto) 0.3 Absolute Eos (auto) 0.1 Absolute Basos (auto) 0 Absolute Nucleated RBC 0.01 Nucleated RBC % 0.1 INR (Anticoag Therapy) 0.96 Sodium 136 Potassium 3.6 Chloride 103 Carbon Dioxide 29 Anion Gap 4 BUN 17 Creatinine 0.55 L Est GFR ( Amer) 186.3 Est GFR (Non-Af Amer) 144.8 BUN/Creatinine Ratio 30.9 H Glucose 86 Calcium 8.9 Triglycerides 124 PHYSICAL EXAMINATION: GENERAL: NAD, cachectic-appearing HEENT: Dry MM CV: RRR PULM: CTAB ABDOMEN: soft, NT/ND, +BS EXTREMITIES: No pedal edema A/P: 77 yo male with progressive dysphasia to solids and liquids with weight loss found to have 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 NPO and on PPN. Biopsies of esophageal mass are pending. 1. Circumferential obstructing distal esophageal tumor s/p EGD with biopsies ~Biopsies of tumor pending. ~NPO due to obstructing tumor. ~Encouraged ambulation and instructed to use incentive spirometry at bedside. 2. Normocytic Anemia ~Likely multifactorial. ~No evidence of GI bleeding. 3. Malnutrition ~On PPN via peripheral IV. ~Planning for PICC placement tomorrow for TPN. Thank you for allowing us to participate in the care of your patient. Please do not hesitate to contact us with any further questions or concerns. Mayra Escalante D.O.
[2017-05-07] MEDS: TPN* 24 HR with D10W 1000 ML BAG* 1,000 ML, Amino Acid Infusion 10%* 850 ML, Sterile Wa... IV SCH ×14 (17:25)
--- NOTE | 2017-05-08 08:46 | PN ---
Subjective Date of Service: 05/08/17 Interval History: States he slept poorly due to the noisy ventilation system and now feels worse than yesterday. Denies dizziness, pain. Objective Active Medications: Acetaminophen (Tylenol Supp*) 650 mg CA Q6H PRN PRN Reason: FEVER/PAIN Albuterol (Ventolin 2.5 Mg/3 Ml Neb.Angeli*) 2.5 mg INH Q2H PRN PRN Reason: SOB/WHEEZING Levetiracetam 750 mg/ Sodium (Chloride) 107.5 mls @ 430 mls/hr IVPB DAILY [facility] Last Admin: 05/07/17 09:28 Dose: 430 mls/hr Levetiracetam 1,500 mg/ Sodium (Chloride) 115 mls @ 460 mls/hr IVPB DAILY@1800 [facility] Last Admin: 05/07/17 17:49 Dose: 460 mls/hr Dextrose 1,000 ml/ Amino Acids 850 ml/ Sterile Water 150 ml/Fat Emulsion Intravenous 500 ml/ Sodium Chloride 100 meq/Potassium Chloride 50 meq/Potassium Phosphate 15 mmole/Calcium Gluconate 15 meq/Magnesium Sulfate 10 meq/ Multivitamins 10 ml/ Trace Metals 3 ml/ Phytonadione 0.2 mg/ Famotidine 40 mg/ Nutrition (Parenteral) 2,606.821 mls @ 108.677 mls/hr IV 1700 [facility] Stop: 05/09/17 16:59 Last Admin: 05/07/17 17:25 Dose: 108.677 mls/hr Lorazepam (Ativan Inj*) 0.5 mg IV BEDTIME PRN PRN Reason: SLEEP Ondansetron HCl (Zofran Inj*) 4 mg IV Q6H PRN PRN Reason: NAUSEA Last Admin: 05/05/17 09:46 Dose: 4 mg Vital Signs 05/07/17 05/07/17 05/07/17 11:30 15:57 16:00 Temperature 97.9 F 97.5 F Pulse Rate 58 58 Respiratory 14 20 Rate Blood Pressure 116/82 122/85 (mmHg) O2 Sat by Pulse 99 99 97 Oximetry 05/07/17 05/07/17 05/07/17 18:57 19:41 23:25 Temperature 97.6 F 97.7 F Pulse Rate 58 50 Respiratory 20 18 15 Rate Blood Pressure 123/77 104/54 (mmHg) O2 Sat by Pulse 99 98 Oximetry 05/08/17 05/08/17 05/08/17 00:00 03:39 07:52 Temperature 97.8 F Pulse Rate 50 55 Respiratory 15 14 Rate Blood Pressure 104/59 75/48 (mmHg) O2 Sat by Pulse 98 98 99 Oximetry 05/08/17 08:00 Temperature Pulse Rate 57 Respiratory Rate Blood Pressure 70/44 (mmHg) O2 Sat by Pulse Oximetry Oxygen Devices in Use Now: None Appearance: Alert, supine in bed. In fair spirits. Looks comfortable. Eyes: No Scleral Icterus Neck: NL Appearance and Movements; NL JVP, No Thyroid Enlargement, Masses Respiratory: Symmetrical Chest Expansion and Respiratory Effort, Clear to Auscultation, Clear to Percussion Cardiovascular: NL Sounds; No Murmurs; No JVD, RRR, No Edema, - - scaphoid Extremities: No Edema, No Clubbing, Cyanosis, - Skin: No Rash or Ulcers, No Nodules or Sclerosis, - Neurological: Alert and Oriented x 3, NL Sensation Result Diagrams: 05/07/17 05:40 05/07/17 05:40 Additional Lab and Data: Lab Results 05/03/17 05/03/17 05/03/17 Range/Units 22:52 22:52 22:52 WBC 7.9 (3.5-10.8) 10^3/ul RBC 4.48 (4.0-5.4) 10^6/ul Hgb 13.8 L (14.0-18.0) g/dl Hct 41 L (42-52) % MCV 91 (80-94) fL MCH 31 (27-31) pg MCHC 34 (31-36) g/dl RDW 15 (10.5-15) % Plt Count 325 (150-450) 10^3/ul MPV 8 (7.4-10.4) um3 Neut % (Auto) 76.8 (38-83) % Lymph % (Auto) 16.4 L (25-47) % [place]rie % (Auto) 6.0 (1-9) % Eos % (Auto) 0.2 (0-6) % Baso % (Auto) 0.6 (0-2) % Absolute Neuts (auto) 6.1 (1.5-7.7) 10^3/ul Absolute Lymphs (auto) 1.3 (1.0-4.8) 10^3/ul Absolute Monos (auto) 0.5 (0-0.8) 10^3/ul Absolute Eos (auto) 0 (0-0.6) 10^3/ul Absolute Basos (auto) 0 (0-0.2) 10^3/ul Absolute Nucleated RBC 0 10^3/ul Nucleated RBC % 0 Sodium 141 (133-145) mmol/L Potassium 3.7 (3.5-5.0) mmol/L Chloride 104 (101-111) mmol/L Carbon Dioxide 24 (22-32) mmol/L Anion Gap 13 H (2-11) mmol/L BUN 33 H (6-24) mg/dL Creatinine 1.05 (0.67-1.17) mg/dL Est GFR ( Amer) 88.3 (>60) Est GFR (Non-Af Amer) 68.7 (>60) BUN/Creatinine Ratio 31.4 H (8-20) Glucose 108 H (70-100) mg/dL Lactic Acid 1.2 (0.5-2.0) mmol/L Calcium 9.7 (8.6-10.3) mg/dL Magnesium 2.3 (1.9-2.7) mg/dL Total Bilirubin 0.80 (0.2-1.0) mg/dL AST 17 (13-39) U/L ALT 16 (7-52) U/L Alkaline Phosphatase 38 (34-104) U/L Troponin I 0.04 H* (<0.04) ng/mL Total Protein 6.6 (6.4-8.9) g/dL Albumin 4.0 (3.2-5.2) g/dL Globulin 2.6 (2-4) g/dL Albumin/Globulin Ratio 1.5 (1-3) TSH 0.52 (0.34-5.60) mcIU/mL Assess/Plan/Problems-Billing Assessment: - Patient Problems (1) Esophageal obstruction Current Visit: Yes Status: Acute Code(s): K22.2 - ESOPHAGEAL OBSTRUCTION SNOMED Code(s): 474888740 Comment: Bx done late on 05/04, results pending. Continue PPN. Convert to TPN when PICC line available (anticipate 05/08). Mild anemia noted. (2) Seizure disorder Current Visit: Yes Status: Acute Code(s): G40.909 - EPILEPSY, UNSP, NOT INTRACTABLE, WITHOUT STATUS EPILEPTICUS SNOMED Code(s): 314246630 Comment: Continue IV levetriacetam. (3) Severe malnutrition Current Visit: Yes Status: Acute Code(s): E43 - UNSPECIFIED SEVERE PROTEIN- CALORIE MALNUTRITION SNOMED Code(s): 01405591 Comment: Severe with 47 lb weight loss, muscle wasting visible, dehydration. (4) Junctional rhythm Current Visit: Yes Status: Acute Code(s): I49.8 - OTHER SPECIFIED CARDIAC ARRHYTHMIAS SNOMED Code(s): 71178469 Comment: Change on ECG 05/08. Echo ordered. Note BP significantly lower in R arm, staff will only use L arm for BP.
[2017-05-08 09:04] LABS: BUN/Creatinine Ratio 33.9 (8-20); Calcium 8.9 mg/dL (8.6-10.3); EGFR African American 162.2 (>60); EGFR Non-African American 126.1 (>60); Potassium 3.9 mmol/L (3.5-5.0)
[2017-05-08] MEDS ORDERED: TPN* 24 HR with Dextrose 50% Water* 500 ML, Amino Acid Infusion 10%* 850 ML, Sterile Wa... CENTR SCH ×14 (17:00)
[2017-05-08] MEDS: TPN* 24 HR with D10W 1000 ML BAG* 1,000 ML, Amino Acid Infusion 10%* 850 ML, Sterile Wa... IV SCH ×14 (18:39)
[2017-05-09 05:32] LABS: Hematocrit 37 % (42-52); Hemoglobin 12.8 g/dl (14.0-18.0); Mean Corpuscular HGB Conc 34 g/dl (31-36); Mean Corpuscular Hemoglobin 31 pg (27-31); Mean Corpuscular Volume 89 fL (80-94); Mean Platelet Volume 8 um3 (7.4-10.4); Red Blood Count 4.17 10^6/ul (4.0-5.4); Red Cell Distribution Width 15 % (10.5-15); White Blood Count 4.4 10^3/ul (3.5-10.8)
[2017-05-09 06:11] LABS: Albumin 3.2 g/dL (3.2-5.2); Calcium 8.7 mg/dL (8.6-10.3); EGFR African American 207.9 (>60); EGFR Non-African American 161.7 (>60); Globulin 2.2 g/dL (2-4); Magnesium 2.1 mg/dL (1.9-2.7); Total Bilirubin 0.6 mg/dL (0.2-1.0); Total Protein 5.4 g/dL (6.4-8.9)
--- NOTE | 2017-05-09 15:09 | RAD ---
HISTORY: Right PICC line placement COMPARISONS: None relevant available at the time of dictation VIEWS: 1: frontal portable view of the chest at 2:45 PM FINDINGS: LINES AND TUBES: There is a right-sided PICC line with the tip overlying the superior vena cava. CARDIOMEDIASTINAL SILHOUETTE: The cardiomediastinal silhouette is normal for portable technique. PLEURA: The costophrenic angles are sharp. No pleural abnormalities are noted. LUNG PARENCHYMA: There is hyperinflation. Calcified granulomas are noted. ABDOMEN: The upper abdomen is clear. There is no subphrenic gas. BONES AND SOFT TISSUES: No bone or soft tissue abnormalities are noted. IMPRESSION: LINES AND TUBES ABOVE. NO ACTIVE CARDIOPULMONARY DISEASE.
--- NOTE | 2017-05-09 16:19 | PN ---
Progress Note - Progress Note Date of Service: 05/09/17 SOAP: Subjective: []PICC placed today. Did well. Not in pain. He is frustrated by flow of information. Does not remember conversation last night and feels he is constantly hearing new information. Acetaminophen (Tylenol Supp*) 650 mg ID Q6H PRN PRN Reason: FEVER/PAIN Albuterol (Ventolin 2.5 Mg/3 Ml Neb.Angeli*) 2.5 mg INH Q2H PRN PRN Reason: SOB/WHEEZING Heparin Sodium (Porcine) (Heparin Flush Picc/Ml/Cvc(*)) 0 ml FLUSH 0600,1800 [facility] PRN Reason: Protocol Last Admin: 05/09/17 06:08 Dose: Not Given Levetiracetam 750 mg/ Sodium (Chloride) 107.5 mls @ 430 mls/hr IVPB DAILY [facility] Last Admin: 05/09/17 10:23 Dose: 430 mls/hr Levetiracetam 1,500 mg/ Sodium (Chloride) 115 mls @ 460 mls/hr IVPB DAILY@1800 [facility] Last Admin: 05/08/17 17:37 Dose: 460 mls/hr Dextrose 1,000 ml/ Amino Acids 850 ml/ Sterile Water 150 ml/Fat Emulsion Intravenous 500 ml/ Sodium Chloride 100 meq/Potassium Chloride 50 meq/Potassium Phosphate 15 mmole/Calcium Gluconate 15 meq/Magnesium Sulfate 10 meq/ Multivitamins 10 ml/ Trace Metals 3 ml/ Phytonadione 0.2 mg/ Famotidine 40 mg/ Nutrition (Parenteral) 2,606.821 mls @ 108.677 mls/hr IV 1700 [facility] Stop: 05/10/17 16:59 Last Admin: 05/08/17 18:39 Dose: 108.677 mls/hr Lorazepam (Ativan Inj*) 0.5 mg IV BEDTIME PRN PRN Reason: SLEEP Ondansetron HCl (Zofran Inj*) 4 mg IV Q6H PRN PRN Reason: NAUSEA Objective: Vital Signs Temp Pulse Resp BP Pulse Ox 97.6 F 84 16 86/61 99 05/09/17 03:45 05/09/17 03:45 05/09/17 03:45 05/09/17 03:45 05/09/17 03:45 HEENT: thin, mucosa moist. CTA RRR s1S2 NT and ND, +BS Ext no edema strength 5/5 Assessment: []77 year old with new diagnosis of esophageal cancer. Case discussed with Dr. Phipps at [facility]. Recommendation is for J-tube for tube feeds. Will then need PET scan for full staging. 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 I am not sure he will consent to traditional therapy. If he does will avoid Cisplatin given severity of side effects. Potentially Carboplatin and 5FU or 5FU single agent with XRT. Plan: []1. J-tube. Discussed with patient and surgery consulted, he will think about it. 2. PICC. Use for TPN starting tomorrow and until J-tube functioning. Will then cap and have available for chemotherapy and IVF prior to surgery. I preffer PICC to port given short term use. 3. Hope to discharge once tube feeds established, PET as out patient. 4. Will continue to follow.
[2017-05-09] MEDS: TPN* 24 HR with D10W 1000 ML BAG* 1,000 ML, Amino Acid Infusion 10%* 850 ML, Sterile Wa... IV SCH ×14 (18:20)
--- NOTE | 2017-05-09 18:34 | PN ---
Subjective Date of Service: 05/09/17 Interval History: Pt forgetful (did not recall meeting [facility] night prior) and perseverating about how much weight he would have to gain back to have a surgery (which again he does not remember details about who broached surgery). Reticent to give details about length of his dysphagia but at least 6 weeks. Irritated. Objective Active Medications: Acetaminophen (Tylenol Supp*) 650 mg GA Q6H PRN PRN Reason: FEVER/PAIN Albuterol (Ventolin 2.5 Mg/3 Ml Neb.Angeli*) 2.5 mg INH Q2H PRN PRN Reason: SOB/WHEEZING Heparin Sodium (Porcine) (Heparin Flush Picc/Ml/Cvc(*)) 0 ml FLUSH 0600,1800 [facility] PRN Reason: Protocol Last Admin: 05/09/17 18:28 Dose: Not Given Levetiracetam 750 mg/ Sodium (Chloride) 107.5 mls @ 430 mls/hr IVPB DAILY [facility] Last Admin: 05/09/17 10:23 Dose: 430 mls/hr Levetiracetam 1,500 mg/ Sodium (Chloride) 115 mls @ 460 mls/hr IVPB DAILY@1800 [facility] Last Admin: 05/09/17 17:58 Dose: 460 mls/hr Dextrose 1,000 ml/ Amino Acids 850 ml/ Sterile Water 150 ml/Fat Emulsion Intravenous 500 ml/ Sodium Chloride 100 meq/Potassium Chloride 50 meq/Potassium Phosphate 15 mmole/Calcium Gluconate 15 meq/Magnesium Sulfate 10 meq/ Multivitamins 10 ml/ Trace Metals 3 ml/ Phytonadione 0.2 mg/ Famotidine 40 mg/ Nutrition (Parenteral) 2,606.821 mls @ 108.677 mls/hr IV 1700 [facility] Stop: 05/10/17 16:59 Last Admin: 05/09/17 18:20 Dose: 108.677 mls/hr Lorazepam (Ativan Inj*) 0.5 mg IV BEDTIME PRN PRN Reason: SLEEP Ondansetron HCl (Zofran Inj*) 4 mg IV Q6H PRN PRN Reason: NAUSEA Last Admin: 05/05/17 09:46 Dose: 4 mg Vital Signs 05/08/17 05/08/17 05/08/17 20:00 20:09 22:55 Temperature 98.2 F Pulse Rate 69 Respiratory 16 20 Rate Blood Pressure 140/87 (mmHg) O2 Sat by Pulse 99 99 Oximetry 05/08/17 05/08/17 05/09/17 23:19 23:31 00:15 Temperature 97.4 F Pulse Rate 62 75 Respiratory 16 Rate Blood Pressure 99/66 94/70 99/60 (mmHg) O2 Sat by Pulse 97 Oximetry 05/09/17 03:45 Temperature 97.6 F Pulse Rate 84 Respiratory 16 Rate Blood Pressure 86/61 (mmHg) O2 Sat by Pulse 99 Oximetry Oxygen Devices in Use Now: None Appearance: Cachectic with temporal muscle wasting, chronically ill appearing. Eyes: No Scleral Icterus, PERRLA Ears/Nose/Mouth/Throat: NL Teeth, Lips, Gums, Mucous Membranes Moist Neck: NL Appearance and Movements; NL JVP, Trachea Midline Respiratory: Symmetrical Chest Expansion and Respiratory Effort, Clear to Auscultation Cardiovascular: NL Sounds; No Murmurs; No JVD, RRR Abdominal: NL Sounds; No Tenderness; No Distention Extremities: No Edema, No Clubbing, Cyanosis Skin: No Rash or Ulcers Neurological: Alert and Oriented x 3 Result Diagrams: 05/09/17 04:58 05/09/17 04:58 Additional Lab and Data: Lab Results 05/03/17 05/03/17 05/03/17 Range/Units 22:52 22:52 22:52 WBC 7.9 (3.5-10.8) 10^3/ul RBC 4.48 (4.0-5.4) 10^6/ul Hgb 13.8 L (14.0-18.0) g/dl Hct 41 L (42-52) % MCV 91 (80-94) fL MCH 31 (27-31) pg MCHC 34 (31-36) g/dl RDW 15 (10.5-15) % Plt Count 325 (150-450) 10^3/ul MPV 8 (7.4-10.4) um3 Neut % (Auto) 76.8 (38-83) % Lymph % (Auto) 16.4 L (25-47) % [place]ball % (Auto) 6.0 (1-9) % Eos % (Auto) 0.2 (0-6) % Baso % (Auto) 0.6 (0-2) % Absolute Neuts (auto) 6.1 (1.5-7.7) 10^3/ul Absolute Lymphs (auto) 1.3 (1.0-4.8) 10^3/ul Absolute Monos (auto) 0.5 (0-0.8) 10^3/ul Absolute Eos (auto) 0 (0-0.6) 10^3/ul Absolute Basos (auto) 0 (0-0.2) 10^3/ul Absolute Nucleated RBC 0 10^3/ul Nucleated RBC % 0 Sodium 141 (133-145) mmol/L Potassium 3.7 (3.5-5.0) mmol/L Chloride 104 (101-111) mmol/L Carbon Dioxide 24 (22-32) mmol/L Anion Gap 13 H (2-11) mmol/L BUN 33 H (6-24) mg/dL Creatinine 1.05 (0.67-1.17) mg/dL Est GFR ( Amer) 88.3 (>60) Est GFR (Non-Af Amer) 68.7 (>60) BUN/Creatinine Ratio 31.4 H (8-20) Glucose 108 H (70-100) mg/dL Lactic Acid 1.2 (0.5-2.0) mmol/L Calcium 9.7 (8.6-10.3) mg/dL Magnesium 2.3 (1.9-2.7) mg/dL Total Bilirubin 0.80 (0.2-1.0) mg/dL AST 17 (13-39) U/L ALT 16 (7-52) U/L Alkaline Phosphatase 38 (34-104) U/L Troponin I 0.04 H* (<0.04) ng/mL Total Protein 6.6 (6.4-8.9) g/dL Albumin 4.0 (3.2-5.2) g/dL Globulin 2.6 (2-4) g/dL Albumin/Globulin Ratio 1.5 (1-3) TSH 0.52 (0.34-5.60) mcIU/mL Assess/Plan/Problems-Billing Assessment: 77 year old male H seizure disorder presenting with severe weight loss and dysphagia to solid foods. 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 Awaiting G-tube placement for severe protein-calorie malnutrition prior to planned surgery. Outpatient PET for full staging. - Patient Problems (1) Esophageal adenocarcinoma Current Visit: Yes Status: Acute Code(s): C15.9 - MALIGNANT NEOPLASM OF ESOPHAGUS, UNSPECIFIED SNOMED Code(s): 334075687 Comment: Appreciate heme/onc recs. General surgery was consulted for G-tube placement. Plan outpatient PET scan for final staging. (2) Esophageal obstruction Current Visit: Yes Status: Acute Code(s): K22.2 - ESOPHAGEAL OBSTRUCTION SNOMED Code(s): 186115447 Comment: Planned Gastric tube. Finally consented to PICC and getting PPN with planned TPN tomorrow. (3) Junctional rhythm Current Visit: Yes Status: Acute Code(s): I49.8 - OTHER SPECIFIED CARDIAC ARRHYTHMIAS SNOMED Code(s): 35319635 Comment: Change on ECG 05/08. Repeat. Note BP significantly lower in R arm, staff will only use L arm for BP. Denies chest pain. (4) Seizure disorder Current Visit: Yes Status: Acute Code(s): G40.909 - EPILEPSY, UNSP, NOT INTRACTABLE, WITHOUT STATUS EPILEPTICUS SNOMED Code(s): 793557085 Comment: Continue IV levetriacetam. (5) Severe malnutrition Current Visit: Yes Status: Acute Code(s): E43 - UNSPECIFIED SEVERE PROTEIN- CALORIE MALNUTRITION SNOMED Code(s): 35823317 Comment: Severe with 47 lb weight loss, muscle wasting visible, dehydration. Plan for G-tube, PPN-> TPN Status and Disposition: medicine inpatient. Attending: Yusef Leavitt
--- NOTE | 2017-05-10 00:06 | CONS ---
CC: Dr. Montano * CONSULTATION REPORT: DATE OF CONSULT: REFERRING PHYSICIAN: Dr. Dunne. PRIMARY CARE PHYSICIAN: Dr. Montano. REASON FOR CONSULT: Esophageal cancer. 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 He moved to [place] about a year and a half ago to live with his brother. Generally been in excellent health. In early November, he started to develop difficulty swallowing. Initially noticed choking with certain type of foods, meats, and things that were harder to chew. He compensated by chewing his food very well and gradually changed his diet. Symptoms progressed to the point that he had a difficult time with anything other than liquids. By 05/04/17, even a sip of water would cause nausea and start to come back up. His diet is tapered off both because he could not swallow and because he avoided eating because of the symptoms. He presented to the emergency room on 05/04/17. Approximately 50-pound weight loss over the past 2 months. In the emergency room, he had a CT scan that showed a distal esophageal obstruction and dilated proximal esophagus. Obstruction appeared to be at the gastroesophageal junction. There is noted to be esophageal wall thickening, no regional lymphadenopathy, no liver lesions or splenic lesions. There was old granulomatous disease in the lung and some small cysts in the liver, though otherwise could not be characterized. Also noted a cystic lesion in the pancreas at the head of the pancreas, a followup imaging recommended. Blood work showed normal hemoglobin, normal MCV. Creatinine is 0.5, albumin 3.2, and normal LFTs. He had an EGD done on 05/04/17 that was notable only for extensive debris in the esophagus and the area of obstruction could not be well visualized. Biopsies were done that showed small bowel with villous architecture. 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 No metaplasia identified. was negative and a biopsy of the distal esophagus showed adenocarcinoma as well as erosive esophagitis in the transition zone mucosa. He is not in any pain, he has had normal bowel movements, no difficulty with urination, no other major musculoskeletal disease. PAST MEDICAL HISTORY: Seizure disorder. Dementia. PAST SURGICAL HISTORY: Appendectomy, knee surgery, foot surgery, dental extractions. MEDICATIONS: Sammarinese herbs only. ALLERGIES: None. FAMILY HISTORY: Mother had colon cancer in her 40s; this was in 1954. No other malignancy in the family. SOCIAL HISTORY: As noted above, he moved to [place] a year and a half ago to live with his brother. 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 Have lived near [place], [place]. Former smoker, though history remote. No children. REVIEW OF SYSTEMS: As noted above. A 14-point review negative other than knee and foot surgery. PHYSICAL EXAM: BP 94/70, temperature 96.7, pulse rate 84, respirations 16. HEENT: Mucosa moist. No lesions. No cervical or supraclavicular lymphadenopathy. Cachectic. Lungs: Clear to auscultation. Heart: Regular rhythm. S1, S2. No murmurs or gallops. Abdomen: Nontender. No hepatosplenomegaly. He has good bowel sounds. Extremities: Muscle atrophy. No clubbing, cyanosis, or edema. Neurologic: Grossly nonfocal. He was conversive, answers questions appropriately. Had some difficulty following the conversation. Strength is 5/5 throughout. LABORATORY DATA: As noted above. ASSESSMENT AND PLAN: A 77-year-old male with newly diagnosed distal esophageal cancer. He has T3 disease by virtue of the obstruction. His CT does not show any evidence of regional spread. Discussed several issues. 1. Esophageal cancer. We will need full staging with a PET scan. It is likely he will need chemotherapy and radiation. Some patients with very early disease will be treated with surgery alone. We discussed chemotherapy and radiation at some length. I will talk to Dr. Phipps to involve Thoracic Surgery in the care plan right away. 2. Schedule for PICC placement tomorrow. We will proceed with procedure. We can use it for TPN for nutrition. We will then use the PICC line for chemotherapy and radiation prior to surgery assuming he needs neoadjuvant therapy. 3. He will need some type of J tube. I would like to talk to the surgeons at [facility] before we determine exactly what procedure as the placement can limit surgical options. I will make that call early tomorrow morning and talk to them about it tomorrow. 4. We will need to be cognizant of his belief system in planning care. I am not sure if he will accept Western medicine for his cancer treatment, though he seemed to agree during interview this evening. 5. His brother and [id number] are the primary sources of support. Plan will be to discharge home as soon as possible. [id number]/[facility] #: [id number] MARICEL
[2017-05-10 06:14] LABS: BUN/Creatinine Ratio 41.8 (8-20); Blood Urea Nitrogen 23 mg/dL (6-24); CO2 Carbon Dioxide 19 mmol/L (22-32); Calcium 8.6 mg/dL (8.6-10.3); Chloride 108 mmol/L (101-111); EGFR African American 186.3 (>60); EGFR Non-African American 144.8 (>60); Glucose 104 mg/dL (70-100); Sodium 132 mmol/L (133-145)
[2017-05-10 06:18] LABS: Anion Gap 5 mmol/L (2-11)
--- NOTE | 2017-05-10 11:17 | PN ---
Progress Note - Progress Note Date of Service: 05/10/17 Note: I returned to discuss the J tube placement with the patient. He informed me he had not reviewed the information I left him and that he was not ready to further discuss the surgery. MALLORY will continue to follow.
[2017-05-10 16:26] LABS: RBC Porphobilinogen Deaminase 10.6 nmol/L/sec
--- NOTE | 2017-05-10 17:01 | CONS ---
CC: Diaz Puente MD; Esther Montano MD * SURGICAL CONSULTATION REPORT: DATE OF CONSULTATION: 05/09/17 REQUESTING PHYSICIAN: Diaz Puente MD REASON FOR CONSULTATION: Laparoscopic J-tube placement in the setting of obstructing esophageal cancer. 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 He was evaluated initially by a chest, abdomen and pelvic CT, which was notable for a diffusely distended esophagus filled with contrast and debris with thickened distal esophageal wall at the gastroesophageal junction. He also had some small hypodense lesions in the liver, too small to characterize by CT and a 2.1 x 1.8 cm cystic lesion in the pancreatic head. The patient subsequently underwent an upper endoscopy on 05/04/17 to the second portion of the duodenum and he was noted to have a partially obstructed circumferential mass extending from 45 cm to 35 cm from the incisors encompassing the cardia of the stomach and the distal esophagus. Biopsies performed revealed a poorly differentiated invasive adenocarcinoma. Subsequently, he had a consultation with Oncology and Dr. uPente consulted with the surgical oncologist at [facility] who recommended placement of a J-tube. At the time of the interview, the patient was somewhat belligerent and concerned about the lack of information he was receiving regarding the role of the PICC line and the role of the feeding tube. He was resistant to attempts to provide him with information and requested written information. PAST MEDICAL HISTORY: Significant for seizure disorder. PAST SURGICAL HISTORY: He has had appendectomy and right knee arthroscopy. MEDICATIONS: Home medication: Levetiracetam. Hospital medications: 1. Parenteral nutrition. 2. Ativan. 3. Levetiracetam. 4. Heparin. 5. Albuterol. 6. Acetaminophen. ALLERGIES: None known. SOCIAL HISTORY: He is an ex smoker, drinks occasional alcohol. He lives with his sister and [id number]. FAMILY HISTORY: Colon cancer in his mother. Lung cancer in his father. PHYSICAL EXAMINATION: Vital Signs: 5 feet 10 inches tall, 113 pounds, BMI 16.2 , temperature of 97.8, pulse of 76, respiration 16, blood pressure 111/50 and O2 sat 100%. In General: He is a cachectic-appearing gentleman with temporal wasting. He has anicteric sclerae. Mucous membranes appear moist. His abdomen is scaphoid and scars from prior appendectomy. Soft and nontender. DIAGNOSTIC STUDIES/LAB DATA: Laboratory data from 05/07/17 WBCs 4.1, hemoglobin 12.7, platelets 291. Chemistries: Sodium 135, potassium 3.9, chloride 104, bicarb 26, BUN 20, creatinine 0.62, glucose 97. Albumin on admission was 4.0. CT scanned images were reviewed from 05/03/17. Findings as above. IMPRESSION: Efrain Obregon is a 77-year-old gentleman with recently diagnosed gastroesophageal junction adenocarcinoma with progressive dysphagia and malnutrition. He at present is not decided upon treatment for this disease and is still gathering information. PLAN/RECOMMENDATION: I discussed the role for feeding tubes in his situation and explained the rationale behind the jejunostomy placement. Laparoscopic jejunostomy was presented to him and I did provide him with some written information as well as diagrams about the placement of the tube and its location. I have provided him with my contact information and told him that I would be back to discuss this with him further if he desired. At present, he is not interested in pursuing this. I will discuss further with Oncology and should he subsequently agree to proceed with feeding tube placement, [facility] would be available to arrange this. [id number]/[facility] #: [id number] MARICEL
[2017-05-10] MEDS: TPN* 24 HR with Dextrose 50% Water* 500 ML, Amino Acid Infusion 10%* 850 ML, Sterile Wa... CENTR SCH ×14 (17:29)
[2017-05-10] MEDS ORDERED: D5NS 0.9% 1000 ML BAG* 1,000 ML IV SCH (20:00)
--- NOTE | 2017-05-10 21:16 | PN ---
Subjective Date of Service: 05/10/17 Interval History: Pt still deciding about wether to pursue J-tube. PICC line subsequently pulled out. Objective Active Medications: Acetaminophen (Tylenol Supp*) 650 mg LA Q6H PRN PRN Reason: FEVER/PAIN Albuterol (Ventolin 2.5 Mg/3 Ml Neb.Angeli*) 2.5 mg INH Q2H PRN PRN Reason: SOB/WHEEZING Heparin Sodium (Porcine) (Heparin Flush Picc/Ml/Cvc(*)) 0 ml FLUSH 0600,1800 [facility] PRN Reason: Protocol Last Admin: 05/10/17 17:48 Dose: Not Given Levetiracetam 750 mg/ Sodium (Chloride) 107.5 mls @ 430 mls/hr IVPB DAILY [facility] Last Admin: 05/10/17 09:42 Dose: 430 mls/hr Levetiracetam 1,500 mg/ Sodium (Chloride) 115 mls @ 460 mls/hr IVPB DAILY@1800 [facility] Last Admin: 05/10/17 20:32 Dose: 460 mls/hr Dextrose 500 ml/ Amino Acids 850 ml/ Sterile Water 150 ml/Fat Emulsion Intravenous 250 ml/ Sodium Chloride 100 meq/Potassium Chloride 50 meq/Potassium Phosphate 15 mmole/Calcium Gluconate 15 meq/Magnesium Sulfate 10 meq/ Multivitamins 10 ml/ Trace Metals 3 ml/ Phytonadione 0.2 mg/ Famotidine 40 mg/ Nutrition (Parenteral) 1,856.821 mls @ 77.37 mls/hr CENTR 1700 [facility] Stop: 05/12/17 16:59 Last Admin: 05/10/17 17:29 Dose: 77.37 mls/hr Dextrose/Sodium Chloride (D5ns 0.9% 1000 Ml Bag*) 1,000 mls @ 75 mls/hr IV PER RATE [facility] Lorazepam (Ativan Inj*) 0.5 mg IV BEDTIME PRN PRN Reason: SLEEP Ondansetron HCl (Zofran Inj*) 4 mg IV Q6H PRN PRN Reason: NAUSEA Last Admin: 05/05/17 09:46 Dose: 4 mg Vital Signs 05/09/17 05/10/17 05/10/17 23:45 00:00 03:15 Temperature 97.9 F 97.9 F Pulse Rate 69 55 Respiratory 16 16 Rate Blood Pressure 112/72 94/50 (mmHg) O2 Sat by Pulse 97 99 98 Oximetry 05/10/17 05/10/17 05/10/17 07:33 08:00 15:24 Temperature 98.2 F Pulse Rate 74 79 Respiratory 14 18 18 Rate Blood Pressure 97/74 127/83 (mmHg) O2 Sat by Pulse 99 99 99 Oximetry Oxygen Devices in Use Now: None Appearance: cachetic, chronically ill appearing Eyes: No Scleral Icterus, PERRLA Neck: NL Appearance and Movements; NL JVP, Trachea Midline Respiratory: Clear to Auscultation, Clear to Percussion Cardiovascular: NL Sounds; No Murmurs; No JVD, RRR Extremities: No Edema, No Clubbing, Cyanosis Skin: No Rash or Ulcers Neurological: Alert and Oriented x 3 Result Diagrams: 05/09/17 04:58 05/10/17 07:08 Additional Lab and Data: Laboratory Results - last 24 hr 05/07/17 05/10/17 05/10/17 11:23 00:40 05:31 Sodium 132 L Potassium Not Reportable Chloride 108 Carbon Dioxide 19 L Anion Gap 5 BUN 23 Creatinine 0.55 L Est GFR ( Amer) 186.3 Est GFR (Non-Af Amer) 144.8 BUN/Creatinine Ratio 41.8 H Glucose 104 H POC Glucose (mg/dL) 120 H Calcium 8.6 RBC Porphobilingn Deam 10.6 RBC Porphob Deam Intrp See comment 05/10/17 05/10/17 07:08 09:36 Sodium Potassium 4.1 Chloride Carbon Dioxide Anion Gap BUN Creatinine Est GFR ( Amer) Est GFR (Non-Af Amer) BUN/Creatinine Ratio Glucose POC Glucose (mg/dL) 97 Calcium RBC Porphobilingn Deam RBC Porphob Deam Intrp Assess/Plan/Problems-Billing Assessment: 77 year old male PMH seizure disorder presenting with severe weight loss and dysphagia to solid foods. 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 Deciding whether to pursue J-tube placement for severe protein-calorie malnutrition prior to a potential chemo+ surgery vs hospice. Often Confused/forgetful. Outpatient PET for full staging. - Patient Problems (1) Esophageal adenocarcinoma Current Visit: Yes Status: Acute Code(s): C15.9 - MALIGNANT NEOPLASM OF ESOPHAGUS, UNSPECIFIED SNOMED Code(s): 866488311 Comment: Appreciate heme/onc recs. General surgery was consulted for G-tube placement but patient still deciding. Plan outpatient PET scan for final staging. (2) Esophageal obstruction Current Visit: Yes Status: Acute Code(s): K22.2 - ESOPHAGEAL OBSTRUCTION SNOMED Code(s): 768579517 Comment: await decision on J tube. Was getting TPN via PICC but now out after pt pulled out. (3) Junctional rhythm Current Visit: Yes Status: Acute Code(s): I49.8 - OTHER SPECIFIED CARDIAC ARRHYTHMIAS SNOMED Code(s): 57850961 Comment: Change on ECG 05/08. Repeat. Note BP significantly lower in R arm, staff will only use L arm for BP. Denies chest pain. (4) Seizure disorder Current Visit: Yes Status: Acute Code(s): G40.909 - EPILEPSY, UNSP, NOT INTRACTABLE, WITHOUT STATUS EPILEPTICUS SNOMED Code(s): 819699967 Comment: Continue IV levetriacetam. (5) Severe malnutrition Current Visit: Yes Status: Acute Code(s): E43 - UNSPECIFIED SEVERE PROTEIN- CALORIE MALNUTRITION SNOMED Code(s): 65074307 Comment: Severe with 47 lb weight loss, muscle wasting visible, dehydration. Plan for possible J-tube, TPN (would need to replace PICC) Status and Disposition: medicine inpatient. awaiting possible J-tube then discharge Attending: Yusef Leavitt
[2017-05-11] MEDS: Acetaminophen SUPP* 650 MG SUPP PR PRN (11:01)
--- NOTE | 2017-05-11 14:01 | RAD ---
INDICATION: PICC catheter placement COMPARISON: May 09, 2017 TECHNIQUE: An AP portable view obtained at 1332 hours is submitted. FINDINGS: Bones/Soft Tissues: There are no acute bony findings. There is a right-sided PICC catheter projecting over the superior vena cava. Cardiomediastinal: The cardiomediastinal silhouette is normal. Lungs: There are no infiltrates. Pleura: There are no pleural effusions. Other: None IMPRESSION: NO ACTIVE DISEASE. PICC CATHETER PROJECTING OVER SUPERIOR VENA CAVA.
[2017-05-11] MEDS: TPN* 24 HR with Dextrose 50% Water* 500 ML, Amino Acid Infusion 10%* 850 ML, Sterile Wa... CENTR SCH ×14 (16:36)
--- NOTE | 2017-05-11 16:58 | PN ---
Subjective Date of Service: 05/11/17 Interval History: Pt pulled out his PICC line last night, he says today intentially, as it was "looking old". Attests he is tired and has not had enough time to think about the pros/cons of the J tube vs pursuing palliative/hospice route. Sister is proxy. Family visited today wants to talk to Dr. Puente again, he returns on Monday. Pt okay to replace PICC line for TPN/eventual chemotherapy if pursued. Objective Active Medications: Acetaminophen (Tylenol Supp*) 650 mg [place] Q6H PRN PRN Reason: FEVER/PAIN Last Admin: 05/11/17 11:01 Dose: 650 mg Albuterol (Ventolin 2.5 Mg/3 Ml Neb.Angeli*) 2.5 mg INH Q2H PRN PRN Reason: SOB/WHEEZING Heparin Sodium (Porcine) (Heparin Flush Picc/Ml/Cvc(*)) 0 ml FLUSH 0600,1800 [facility] PRN Reason: Protocol Last Admin: 05/11/17 05:35 Dose: Not Given Levetiracetam 750 mg/ Sodium (Chloride) 107.5 mls @ 430 mls/hr IVPB DAILY [facility] Last Admin: 05/11/17 11:00 Dose: 430 mls/hr Levetiracetam 1,500 mg/ Sodium (Chloride) 115 mls @ 460 mls/hr IVPB DAILY@1800 [facility] Last Admin: 05/10/17 20:32 Dose: 460 mls/hr Dextrose 500 ml/ Amino Acids 850 ml/ Sterile Water 150 ml/Fat Emulsion Intravenous 250 ml/ Sodium Chloride 100 meq/Potassium Chloride 50 meq/Potassium Phosphate 15 mmole/Calcium Gluconate 15 meq/Magnesium Sulfate 10 meq/ Multivitamins 10 ml/ Trace Metals 3 ml/ Phytonadione 0.2 mg/ Famotidine 40 mg/ Nutrition (Parenteral) 1,856.821 mls @ 77.37 mls/hr CENTR 1700 [facility] Stop: 05/12/17 16:59 Last Admin: 05/11/17 16:36 Dose: 77.37 mls/hr Lorazepam (Ativan Inj*) 0.5 mg IV BEDTIME PRN PRN Reason: SLEEP Ondansetron HCl (Zofran Inj*) 4 mg IV Q6H PRN PRN Reason: NAUSEA Last Admin: 05/05/17 09:46 Dose: 4 mg Vital Signs 05/10/17 05/10/17 05/10/17 19:59 20:45 23:47 Temperature 97.4 F Pulse Rate 68 55 Respiratory 18 20 16 Rate Blood Pressure 122/83 86/49 (mmHg) O2 Sat by Pulse 99 96 Oximetry 05/11/17 05/11/17 05/11/17 00:00 03:59 08:00 Temperature Pulse Rate 48 Respiratory 16 24 Rate Blood Pressure 102/43 (mmHg) O2 Sat by Pulse 97 97 100 Oximetry 05/11/17 05/11/17 05/11/17 08:32 08:40 08:50 Temperature 97 F Pulse Rate 58 Respiratory 24 Rate Blood Pressure 77/52 129/77 129/73 (mmHg) O2 Sat by Pulse 100 Oximetry 05/11/17 05/11/17 05/11/17 11:34 15:00 16:00 Temperature 97.3 F Pulse Rate 93 60 Respiratory 17 18 Rate Blood Pressure 109/65 113/70 (mmHg) O2 Sat by Pulse 100 100 100 Oximetry Oxygen Devices in Use Now: None Appearance: cachectic, no acute distress Ears/Nose/Mouth/Throat: NL Teeth, Lips, Gums Neck: NL Appearance and Movements; NL JVP, Trachea Midline Respiratory: Symmetrical Chest Expansion and Respiratory Effort, Clear to Auscultation Cardiovascular: NL Sounds; No Murmurs; No JVD, RRR Abdominal: NL Sounds; No Tenderness; No Distention Extremities: No Edema Skin: No Rash or Ulcers Neurological: Alert and Oriented x 3, - - mood: continues to be testy/ aggrievated Result Diagrams: 05/09/17 04:58 05/10/17 07:08 Additional Lab and Data: Laboratory Results - last 24 hr 05/07/17 05/10/17 05/10/17 11:23 00:40 05:31 Sodium 132 L Potassium Not Reportable Chloride 108 Carbon Dioxide 19 L Anion Gap 5 BUN 23 Creatinine 0.55 L Est GFR ( Amer) 186.3 Est GFR (Non-Af Amer) 144.8 BUN/Creatinine Ratio 41.8 H Glucose 104 H POC Glucose (mg/dL) 120 H Calcium 8.6 RBC Porphobilingn Deam 10.6 RBC Porphob Deam Intrp See comment 05/10/17 05/10/17 07:08 09:36 Sodium Potassium 4.1 Chloride Carbon Dioxide Anion Gap BUN Creatinine Est GFR ( Amer) Est GFR (Non-Af Amer) BUN/Creatinine Ratio Glucose POC Glucose (mg/dL) 97 Calcium RBC Porphobilingn Deam RBC Porphob Deam Intrp Assess/Plan/Problems-Billing Assessment: 77 year old male PMH seizure disorder presenting with severe weight loss and dysphagia to solid foods. 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 Deciding whether to pursue J-tube placement for severe protein-calorie malnutrition prior to a potential chemo+ surgery vs hospice. Often Confused/forgetful. Outpatient PET for full staging. - Patient Problems (1) Esophageal adenocarcinoma Current Visit: Yes Status: Acute Code(s): C15.9 - MALIGNANT NEOPLASM OF ESOPHAGUS, UNSPECIFIED SNOMED Code(s): 657632611 Comment: Appreciate heme/onc recs. General surgery was consulted for G-tube placement but patient still deciding. Plan outpatient PET scan for final staging. (2) Esophageal obstruction Current Visit: Yes Status: Acute Code(s): K22.2 - ESOPHAGEAL OBSTRUCTION SNOMED Code(s): 187630689 Comment: await decision on J tube. Getting TPN again via his 2nd PICC. (3) Junctional rhythm Current Visit: Yes Status: Acute Code(s): I49.8 - OTHER SPECIFIED CARDIAC ARRHYTHMIAS SNOMED Code(s): 20564394 Comment: Change on ECG 05/08. Repeat. Note BP significantly lower in R arm, staff will only use L arm for BP. Denies chest pain. (4) Seizure disorder Current Visit: Yes Status: Acute Code(s): G40.909 - EPILEPSY, UNSP, NOT INTRACTABLE, WITHOUT STATUS EPILEPTICUS SNOMED Code(s): 431138775 Comment: Continue IV levetriacetam. (5) Severe malnutrition Current Visit: Yes Status: Acute Code(s): E43 - UNSPECIFIED SEVERE PROTEIN- CALORIE MALNUTRITION SNOMED Code(s): 52854190 Comment: 2/2 to progressive esophogeal obstruction. Severe with 47 lb weight loss (30%) over multiple week(pt won't clearly specify), muscle wasting visible , dehydration. Plan for possible J-tube Status and Disposition: medicine inpatient. awaiting possible J-tube vs palliative route decision, then discharge Attending: Yusef Leavitt
[2017-05-12 06:21] LABS: Albumin 3.1 g/dL (3.2-5.2); BUN/Creatinine Ratio 33.9 (8-20); Calcium 8.4 mg/dL (8.6-10.3); EGFR African American 182.4 (>60); EGFR Non-African American 141.8 (>60); Globulin 2.1 g/dL (2-4); Phosphorus 2.8 mg/dL (2.5-5.0); Potassium 3.9 mmol/L (3.5-5.0); Total Bilirubin 0.7 mg/dL (0.2-1.0); Total Protein 5.2 g/dL (6.4-8.9)
[2017-05-12] MEDS: Acetaminophen SUPP* 650 MG SUPP PR PRN (09:28)
--- NOTE | 2017-05-12 12:43 | PN ---
Subjective Date of Service: 05/12/17 Interval History: Labs stable. TPN infusing. Waiting to talk to Cindi again about J-tube. Objective Active Medications: Acetaminophen (Tylenol Supp*) 650 mg [place] Q6H PRN PRN Reason: FEVER/PAIN Last Admin: 05/12/17 09:28 Dose: 650 mg Albuterol (Ventolin 2.5 Mg/3 Ml Neb.Angeli*) 2.5 mg INH Q2H PRN PRN Reason: SOB/WHEEZING Heparin Sodium (Porcine) (Heparin Flush Picc/Ml/Cvc(*)) 0 ml FLUSH 0600,1800 [facility] PRN Reason: Protocol Last Admin: 05/12/17 07:27 Dose: Not Given Levetiracetam 750 mg/ Sodium (Chloride) 107.5 mls @ 430 mls/hr IVPB DAILY [facility] Last Admin: 05/12/17 09:18 Dose: 430 mls/hr Levetiracetam 1,500 mg/ Sodium (Chloride) 115 mls @ 460 mls/hr IVPB DAILY@1800 [facility] Last Admin: 05/11/17 17:33 Dose: 460 mls/hr Dextrose 500 ml/ Amino Acids 850 ml/ Sterile Water 150 ml/Fat Emulsion Intravenous 250 ml/ Sodium Chloride 100 meq/Potassium Chloride 50 meq/Potassium Phosphate 15 mmole/Calcium Gluconate 15 meq/Magnesium Sulfate 10 meq/ Multivitamins 10 ml/ Trace Metals 3 ml/ Phytonadione 0.2 mg/ Famotidine 40 mg/ Nutrition (Parenteral) 1,856.821 mls @ 77.37 mls/hr CENTR 1700 [facility] Stop: 05/16/17 16:59 Last Admin: 05/11/17 16:36 Dose: 77.37 mls/hr Lorazepam (Ativan Inj*) 0.5 mg IV BEDTIME PRN PRN Reason: SLEEP Ondansetron HCl (Zofran Inj*) 4 mg IV Q6H PRN PRN Reason: NAUSEA Last Admin: 05/05/17 09:46 Dose: 4 mg Vital Signs 05/11/17 05/11/17 05/11/17 15:00 16:00 17:58 Temperature 97.3 F Pulse Rate 60 64 Respiratory 18 16 Rate Blood Pressure 113/70 (mmHg) O2 Sat by Pulse 100 100 100 Oximetry 05/11/17 05/11/1705/11/17 19:15 20:01 23:38 Temperature 98.2 F 98.3 F Pulse Rate 72 75 Respiratory 18 18 18 Rate Blood Pressure 109/74 92/59 (mmHg) O2 Sat by Pulse 100 99 Oximetry 05/12/17 05/12/17 05/12/17 00:00 03:45 08:00 Temperature 97.5 F Pulse Rate 49 Respiratory 18 16 Rate Blood Pressure 98/47 (mmHg) O2 Sat by Pulse 98 98 100 Oximetry 05/12/17 05/12/17 09:12 12:08 Temperature 98.1 F 98.6 F Pulse Rate 65 Respiratory 18 Rate Blood Pressure 95/61 (mmHg) O2 Sat by Pulse 100 Oximetry Oxygen Devices in Use Now: None Appearance: severely cachectic, chronically ill appearing Ears/Nose/Mouth/Throat: NL Teeth, Lips, Gums Neck: NL Appearance and Movements; NL JVP, Trachea Midline Respiratory: Symmetrical Chest Expansion and Respiratory Effort, Clear to Auscultation Cardiovascular: NL Sounds; No Murmurs; No JVD, RRR Abdominal: NL Sounds; No Tenderness; No Distention, No Hepatosplenomegaly Extremities: No Edema, No Clubbing, Cyanosis Skin: No Rash or Ulcers, No Nodules or Sclerosis Neurological: Alert and Oriented x 3, - - persistently sarcastic Result Diagrams: 05/09/17 04:58 05/12/17 05:48 Additional Lab and Data: Laboratory Results - last 24 hr 05/12/17 05/12/17 05/12/17 03:49 05:48 09:25 Sodium 139 Potassium 3.9 Chloride 110 Carbon Dioxide 25 Anion Gap 4 BUN 19 Creatinine 0.56 L Est GFR ( Amer) 182.4 Est GFR (Non-Af Amer) 141.8 BUN/Creatinine Ratio 33.9 H Glucose 111 H POC Glucose (mg/dL) 128 H 94 Calcium 8.4 L Phosphorus 2.8 Magnesium 2.0 Total Bilirubin 0.70 AST 28 ALT 53 H Alkaline Phosphatase 38 Total Protein 5.2 L Albumin 3.1 L Globulin 2.1 Albumin/Globulin Ratio 1.5 Prealbumin 24 Triglycerides 70 Cholesterol 128 Assess/Plan/Problems-Billing Assessment: 77 year old male PMH seizure disorder presenting with severe weight loss and dysphagia to solid foods. 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 Deciding whether to pursue J-tube placement for severe protein-calorie malnutrition prior to a potential chemo+ surgery vs hospice. Intermittently forgetful. Eventual outpatient PET for full staging. - Patient Problems (1) Esophageal adenocarcinoma Current Visit: Yes Status: Acute Code(s): C15.9 - MALIGNANT NEOPLASM OF ESOPHAGUS, UNSPECIFIED SNOMED Code(s): 469893657 Comment: Appreciate heme/onc recs. General surgery was consulted for J-tube placement but patient still deciding. Plan outpatient PET scan for final staging. (2) Esophageal obstruction Current Visit: Yes Status: Acute Code(s): K22.2 - ESOPHAGEAL OBSTRUCTION SNOMED Code(s): 051248431 Comment: await decision on J tube. Getting TPN again via his 2nd PICC. (3) Junctional rhythm Current Visit: Yes Status: Acute Code(s): I49.8 - OTHER SPECIFIED CARDIAC ARRHYTHMIAS SNOMED Code(s): 18424532 Comment: Change on ECG 05/08. Repeat. Note BP significantly lower in R arm, staff will only use L arm for BP. Denies chest pain. (4) Seizure disorder Current Visit: Yes Status: Acute Code(s): G40.909 - EPILEPSY, UNSP, NOT INTRACTABLE, WITHOUT STATUS EPILEPTICUS SNOMED Code(s): 210325680 Comment: Continue IV levetriacetam. (5) Severe malnutrition Current Visit: Yes Status: Acute Code(s): E43 - UNSPECIFIED SEVERE PROTEIN- CALORIE MALNUTRITION SNOMED Code(s): 54938477 Comment: 2/2 to progressive esophogeal obstruction. Severe with 47 lb weight loss (30%) over multiple week(pt won't clearly specify), muscle wasting visible , dehydration. Plan for possible J-tube Status and Disposition: medicine inpatient. awaiting possible J-tube vs palliative route decision, then discharge for outpatient staging PET Attending: Yusef Leavitt
[2017-05-12] MEDS: TPN* 24 HR with Dextrose 50% Water* 500 ML, Amino Acid Infusion 10%* 850 ML, Sterile Wa... CENTR SCH ×14 (17:22)
--- NOTE | 2017-05-13 10:11 | PN ---
Progress Note - Progress Note Date of Service: 05/13/17 SOAP: Subjective: []No change. Has not decided on course. Would like written information regarding options for therapy and written information regarding J tube. Today meet with cira, his brother and sister in law and his nephew. Acetaminophen (Tylenol Supp*) 650 mg [place] Q6H PRN PRN Reason: FEVER/PAIN Last Admin: 05/12/17 09:28 Dose: 650 mg Albuterol (Ventolin 2.5 Mg/3 Ml Neb.Angeli*) 2.5 mg INH Q2H PRN PRN Reason: SOB/WHEEZING Heparin Sodium (Porcine) (Heparin Flush Picc/Ml/Cvc(*)) 0 ml FLUSH 0600,1800 [facility] PRN Reason: Protocol Last Admin: 05/13/17 06:14 Dose: Not Given Levetiracetam 750 mg/ Sodium (Chloride) 107.5 mls @ 430 mls/hr IVPB DAILY [facility] Last Admin: 05/12/17 09:18 Dose: 430 mls/hr Levetiracetam 1,500 mg/ Sodium (Chloride) 115 mls @ 460 mls/hr IVPB DAILY@1800 [facility] Last Admin: 05/12/17 17:22 Dose: 460 mls/hr Dextrose 500 ml/ Amino Acids 850 ml/ Sterile Water 150 ml/Fat Emulsion Intravenous 250 ml/ Sodium Chloride 100 meq/Potassium Chloride 50 meq/Potassium Phosphate 15 mmole/Calcium Gluconate 15 meq/Magnesium Sulfate 10 meq/ Multivitamins 10 ml/ Trace Metals 3 ml/ Phytonadione 0.2 mg/ Famotidine 40 mg/ Nutrition (Parenteral) 1,856.821 mls @ 77.37 mls/hr CENTR 1700 [facility] Stop: 05/16/17 16:59 Last Admin: 05/12/17 17:22 Dose: 77.37 mls/hr Lorazepam (Ativan Inj*) 0.5 mg IV BEDTIME PRN PRN Reason: SLEEP Ondansetron HCl (Zofran Inj*) 4 mg IV Q6H PRN PRN Reason: NAUSEA Last Admin: 05/05/17 09:46 Dose: 4 mg Objective: [] Vital Signs Temp Pulse Resp BP Pulse Ox 97.6 F 65 14 74/47 97 05/13/17 03:32 05/13/17 03:32 05/13/17 03:32 05/13/17 03:32 05/13/17 03:32 Exam differed. Assessment: []77 year old with new diagnosis of esophageal cancer. [facility], he has not decded on a course of therapy. Recommendation is for J- tube for tube feeds. Will then need PET scan for full staging. 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 I am not sure he will consent to traditional therapy. If he does will avoid Cisplatin given severity of side effects. Potentially Carboplatin and 5FU or 5FU single agent with XRT. We again discussed three options: J-tube followed by treatment of cancer, J- tube for nutrition without treatment of cancer, withdrawal of all care and comfort measures. I advised he first decide if he is interested in treating cancer. If so then plan as above. He is not going to treat cancer decision about J tube is one of quality of life. If life with tube feeing for a 6-18 months before cancer progressed is not appealing, withdrawal of care is reasonable. Plan: []1. Continue TPN and PICC for now 2. Given him printed information about cancer and J-tube. 3. Cap TPN and walk twice per day 4. Will need to make decision soon or will have difficulty with LOS and continued hospitalization. time with patient, family and chart 45 min.
--- NOTE | 2017-05-13 16:25 | PN ---
Subjective Date of Service: 05/13/17 Interval History: Pt and family including sister Kassie Ross met with Dr. Puente again today who furnished written information about J-tube and esophogeal cancer. No decision yet but spoke with Kassie by phone and they said would have decision soon. Objective Active Medications: Acetaminophen (Tylenol Supp*) 650 mg [place] Q6H PRN PRN Reason: FEVER/PAIN Last Admin: 05/12/17 09:28 Dose: 650 mg Albuterol (Ventolin 2.5 Mg/3 Ml Neb.Angeli*) 2.5 mg INH Q2H PRN PRN Reason: SOB/WHEEZING Heparin Sodium (Porcine) (Heparin Flush Picc/Ml/Cvc(*)) 0 ml FLUSH 0600,1800 [facility] PRN Reason: Protocol Last Admin: 05/13/17 06:14 Dose: Not Given Levetiracetam 750 mg/ Sodium (Chloride) 107.5 mls @ 430 mls/hr IVPB DAILY [facility] Last Admin: 05/13/17 10:51 Dose: 430 mls/hr Levetiracetam 1,500 mg/ Sodium (Chloride) 115 mls @ 460 mls/hr IVPB DAILY@1800 [facility] Last Admin: 05/12/17 17:22 Dose: 460 mls/hr Dextrose 500 ml/ Amino Acids 850 ml/ Sterile Water 150 ml/Fat Emulsion Intravenous 250 ml/ Sodium Chloride 100 meq/Potassium Chloride 50 meq/Potassium Phosphate 15 mmole/Calcium Gluconate 15 meq/Magnesium Sulfate 10 meq/ Multivitamins 10 ml/ Trace Metals 3 ml/ Phytonadione 0.2 mg/ Famotidine 40 mg/ Nutrition (Parenteral) 1,856.821 mls @ 77.37 mls/hr CENTR 1700 [facility] Stop: 05/16/17 16:59 Last Admin: 05/12/17 17:22 Dose: 77.37 mls/hr Lorazepam (Ativan Inj*) 0.5 mg IV BEDTIME PRN PRN Reason: SLEEP Ondansetron HCl (Zofran Inj*) 4 mg IV Q6H PRN PRN Reason: NAUSEA Last Admin: 05/05/17 09:46 Dose: 4 mg Vital Signs 05/12/17 05/13/17 05/13/17 20:11 00:08 01:11 Temperature 98.0 F Pulse Rate 62 55 Respiratory 18 24 18 Rate Blood Pressure 119/80 91/50 (mmHg) O2 Sat by Pulse 98 98 Oximetry 05/13/17 05/13/17 05/13/17 03:23 03:32 06:55 Temperature 97.6 F 97.9 F Pulse Rate 65 54 Respiratory 14 16 Rate Blood Pressure 100/63 74/47 92/58 (mmHg) O2 Sat by Pulse 97 99 Oximetry 05/13/17 05/13/17 08:00 11:43 Temperature 98.1 F Pulse Rate 67 Respiratory 12 20 Rate Blood Pressure 90/60 (mmHg) O2 Sat by Pulse 99 99 Oximetry Oxygen Devices in Use Now: None Appearance: severe cachexia Ears/Nose/Mouth/Throat: NL Teeth, Lips, Gums, Mucous Membranes Moist Neck: NL Appearance and Movements; NL JVP, Trachea Midline Respiratory: Symmetrical Chest Expansion and Respiratory Effort, Clear to Auscultation Cardiovascular: NL Sounds; No Murmurs; No JVD, RRR Extremities: No Edema Neurological: Alert and Oriented x 3 Result Diagrams: 05/09/17 04:58 05/12/17 05:48 Additional Lab and Data: Laboratory Results - last 24 hr 05/12/17 05/12/17 05/12/17 03:49 05:48 09:25 Sodium 139 Potassium 3.9 Chloride 110 Carbon Dioxide 25 Anion Gap 4 BUN 19 Creatinine 0.56 L Est GFR ( Amer) 182.4 Est GFR (Non-Af Amer) 141.8 BUN/Creatinine Ratio 33.9 H Glucose 111 H POC Glucose (mg/dL) 128 H 94 Calcium 8.4 L Phosphorus 2.8 Magnesium 2.0 Total Bilirubin 0.70 AST 28 ALT 53 H Alkaline Phosphatase 38 Total Protein 5.2 L Albumin 3.1 L Globulin 2.1 Albumin/Globulin Ratio 1.5 Prealbumin 24 Triglycerides 70 Cholesterol 128 Assess/Plan/Problems-Billing Assessment: 77 year old male PMH seizure disorder presenting with severe weight loss and dysphagia to solid foods. 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 Deciding whether to pursue J-tube placement for severe protein-calorie malnutrition prior to a potential chemo+ surgery vs J -tube for nutrition w/o further treatment vs discharge with no intervention. Poor short term memory likely 2/2 nutritional deficits. Eventual outpatient PET for full staging. - Patient Problems (1) Esophageal adenocarcinoma Current Visit: Yes Status: Acute Code(s): C15.9 - MALIGNANT NEOPLASM OF ESOPHAGUS, UNSPECIFIED SNOMED Code(s): 552644407 Comment: Appreciate heme/onc recs. General surgery was consulted for J-tube placement but patient and family still deciding. Sister Kassie Ross may have to ultimately decide as surrogate deicion maker given patient short term memory deficits. Plan outpatient PET scan for final staging. (2) Esophageal obstruction Current Visit: Yes Status: Acute Code(s): K22.2 - ESOPHAGEAL OBSTRUCTION SNOMED Code(s): 548536929 Comment: await decision on J tube. Getting TPN again via his 2nd PICC. (3) Junctional rhythm Current Visit: Yes Status: Acute Code(s): I49.8 - OTHER SPECIFIED CARDIAC ARRHYTHMIAS SNOMED Code(s): 81294920 Comment: Change on ECG 05/08. Repeat. Note BP significantly lower in R arm, staff will only use L arm for BP. Denies chest pain. (4) Seizure disorder Current Visit: Yes Status: Acute Code(s): G40.909 - EPILEPSY, UNSP, NOT INTRACTABLE, WITHOUT STATUS EPILEPTICUS SNOMED Code(s): 740132347 Comment: Continue IV levetriacetam. (5) Severe malnutrition Current Visit: Yes Status: Acute Code(s): E43 - UNSPECIFIED SEVERE PROTEIN- CALORIE MALNUTRITION SNOMED Code(s): 75501257 Comment: 09/22 to progressive esophogeal obstruction. Severe with 47 lb weight loss (30%) over multiple week(pt won't clearly specify), muscle wasting visible , dehydration. Plan for possible J-tube Status and Disposition: medicine inpatient. awaiting possible J-tube (+/- pursuit of treatment) vs complete palliative route decision. The former would include plan for outpatient staging PET Attending: Yusef Leavitt
[2017-05-13] MEDS: TPN* 24 HR with Dextrose 50% Water* 500 ML, Amino Acid Infusion 10%* 850 ML, Sterile Wa... CENTR SCH ×14 (16:45)
--- NOTE | 2017-05-14 09:34 | PN ---
Subjective Date of Service: 05/14/17 Interval History: Patient seen and examined at bedside. Endorses no acute complaints, including fever/chills, CP, SOB. Patient has expressed desire to pursue treatment but would like to discuss more with oncology. Plan for patient and family to discuss treatment options with Dr. Puente and surgery team tomorrow. Discussed MOLST briefly; they would like to hold off on completing MOLST at this time. Family History: Unchanged from Admission Social History: Unchanged from Admission Past Medical History: Unchanged from Admission Objective Active Medications: Acetaminophen (Tylenol Supp*) 650 mg [place] Q6H PRN PRN Reason: FEVER/PAIN Last Admin: 05/12/17 09:28 Dose: 650 mg Albuterol (Ventolin 2.5 Mg/3 Ml Neb.Angeli*) 2.5 mg INH Q2H PRN PRN Reason: SOB/WHEEZING Heparin Sodium (Porcine) (Heparin Flush Picc/Ml/Cvc(*)) 0 ml FLUSH 0600,1800 [facility] PRN Reason: Protocol Last Admin: 05/14/17 05:19 Dose: Not Given Levetiracetam 750 mg/ Sodium (Chloride) 107.5 mls @ 430 mls/hr IVPB DAILY [facility] Last Admin: 05/13/17 10:51 Dose: 430 mls/hr Levetiracetam 1,500 mg/ Sodium (Chloride) 115 mls @ 460 mls/hr IVPB DAILY@1800 [facility] Last Admin: 05/13/17 17:44 Dose: 460 mls/hr Dextrose 500 ml/ Amino Acids 850 ml/ Sterile Water 150 ml/Fat Emulsion Intravenous 250 ml/ Sodium Chloride 100 meq/Potassium Chloride 50 meq/Potassium Phosphate 15 mmole/Calcium Gluconate 15 meq/Magnesium Sulfate 10 meq/ Multivitamins 10 ml/ Trace Metals 3 ml/ Phytonadione 0.2 mg/ Famotidine 40 mg/ Nutrition (Parenteral) 1,856.821 mls @ 77.37 mls/hr CENTR 1700 [facility] Stop: 05/16/17 16:59 Last Admin: 05/13/17 16:45 Dose: 77.37 mls/hr Lorazepam (Ativan Inj*) 0.5 mg IV BEDTIME PRN PRN Reason: SLEEP Ondansetron HCl (Zofran Inj*) 4 mg IV Q6H PRN PRN Reason: NAUSEA Last Admin: 05/05/17 09:46 Dose: 4 mg Vital Signs 05/13/17 05/13/17 05/13/17 11:43 15:50 16:00 Temperature 98.1 F 97.8 F Pulse Rate 67 78 Respiratory 20 16 Rate Blood Pressure 90/60 100/69 (mmHg) O2 Sat by Pulse 99 100 100 Oximetry 05/13/17 05/13/17 05/14/17 19:20 20:12 03:44 Temperature 98.0 F 97.7 F Pulse Rate 71 65 Respiratory 16 12 16 Rate Blood Pressure 95/66 79/51 (mmHg) O2 Sat by Pulse 98 97 Oximetry 05/14/17 05/14/17 05/14/17 03:48 03:49 08:55 Temperature Pulse Rate 65 Respiratory 16 Rate Blood Pressure 98/54 (mmHg) O2 Sat by Pulse 98 97 Oximetry Oxygen Devices in Use Now: None Appearance: Cachectic male patient, lying in bed, NAD Eyes: No Scleral Icterus Ears/Nose/Mouth/Throat: Clear Oropharnyx, Mucous Membranes Moist Neck: NL Appearance and Movements; NL JVP Respiratory: Symmetrical Chest Expansion and Respiratory Effort, Clear to Auscultation Cardiovascular: NL Sounds; No Murmurs; No JVD, RRR Abdominal: NL Sounds; No Tenderness; No Distention Extremities: No Edema Skin: No Rash or Ulcers Neurological: Alert and Oriented x 3 Lines/Tubes/Other Access: Clean, Dry and Intact PICC Line Result Diagrams: 05/09/17 04:58 05/12/17 05:48 Additional Lab and Data: Laboratory Results - last 24 hr 05/12/17 05/12/17 05/12/17 03:49 05:48 09:25 Sodium 139 Potassium 3.9 Chloride 110 Carbon Dioxide 25 Anion Gap 4 BUN 19 Creatinine 0.56 L Est GFR ( Amer) 182.4 Est GFR (Non-Af Amer) 141.8 BUN/Creatinine Ratio 33.9 H Glucose 111 H POC Glucose (mg/dL) 128 H 94 Calcium 8.4 L Phosphorus 2.8 Magnesium 2.0 Total Bilirubin 0.70 AST 28 ALT 53 H Alkaline Phosphatase 38 Total Protein 5.2 L Albumin 3.1 L Globulin 2.1 Albumin/Globulin Ratio 1.5 Prealbumin 24 Triglycerides 70 Cholesterol 128 Assess/Plan/Problems-Billing Assessment: 77 year old male PMH seizure disorder presenting with severe weight loss and dysphagia to solid foods. 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 Deciding whether to pursue J-tube placement for severe protein-calorie malnutrition prior to a potential chemo+ surgery vs J -tube for nutrition w/o further treatment vs discharge with no intervention. Poor short term memory likely 2/2 nutritional deficits. Eventual outpatient PET for full staging. - Patient Problems (1) Esophageal adenocarcinoma Code(s): C15.9 - MALIGNANT NEOPLASM OF ESOPHAGUS, UNSPECIFIED Comment: Appreciate heme/onc consult General surgery was consulted for J-tube placement, but patient and family still deciding. Sister Kassie Ross may have to ultimately decide as surrogate decision maker, given patient's short term memory deficits. Plan for outpatient PET scan for final staging. (2) Esophageal obstruction Code(s): K22.2 - ESOPHAGEAL OBSTRUCTION Comment: Family considering J-tube, plan to further discuss with Dr. Puente and surgery team tomorrow Continue TPN via PICC (pt on 2nd PICC after pulling first one out) (3) Severe malnutrition Code(s): E43 - UNSPECIFIED SEVERE PROTEIN-CALORIE MALNUTRITION Comment: 2/2 to progressive esophogeal obstruction. Severe with 47 lb weight loss (30%) over multiple weeks (pt won't clearly specify) Evidence of visible muscle wasting, dehydration. Plan for possible J-tube Continue TPN (4) Junctional rhythm Code(s): I49.8 - OTHER SPECIFIED CARDIAC ARRHYTHMIAS Comment: Change on ECG 05/08 Note BP significantly lower in R arm, staff will only use L arm for BP. Denies chest pain. Echocardiogram shows normal LV wall motion, EF 50-55%, slightly dilated RA, mild to mod MR and TR. (5) Seizure disorder Code(s): G40.909 - EPILEPSY, UNSP, NOT INTRACTABLE, WITHOUT STATUS EPILEPTICUS Comment: Continue IV levetiracetam. (6) DVT prophylaxis Comment: SCDs Status and Disposition: Inpatient. Awaiting possible J-tube (+/- pursuit of treatment) vs complete palliative route decision. The former would include plan for outpatient staging PET.
[2017-05-14] MEDS: TPN* 24 HR with Dextrose 50% Water* 500 ML, Amino Acid Infusion 10%* 850 ML, Sterile Wa... CENTR SCH ×14 (16:35)
[2017-05-15] MEDS ORDERED: TPN* 24 HR with Dextrose 50% Water* 500 ML, Amino Acid Infusion 10%* 850 ML, Sterile Wa... CENTR SCH ×42 (11:59→17:00)
--- NOTE | 2017-05-15 13:41 | PN ---
Subjective Date of Service: 05/15/17 Interval History: Patient seen and examined at bedside. Denies fever, chills, shortness of breath , chest discomfort, N/V/D. Pt's sister would like to take Pt home on Hospice. Plan for family to talk further with Dr. Puente later today and make a final decision. Family History: Unchanged from Admission Social History: Unchanged from Admission Past Medical History: Unchanged from Admission Objective Active Medications: Acetaminophen (Tylenol Supp*) 650 mg NV Q6H PRN Reason: FEVER/PAIN Albuterol (Ventolin 2.5 Mg/3 Ml Neb.Angeli*) 2.5 mg INH Q2H PRN Reason: SOB/ WHEEZING Heparin Sodium (Porcine) (Heparin Flush Picc/Ml/Cvc(*)) 0 ml FLUSH 0600,1800 [facility]ES [facility] Reason: Protocol Levetiracetam 750 mg/ Sodium (Chloride) 107.5 mls @ 430 mls/hr IVPB DAILY COUNT INCLUDES THE [facility] Levetiracetam 1,500 mg/ Sodium (Chloride) 115 mls @ 460 mls/hr IVPB DAILY@1800 COUNT INCLUDES [facility] Dextrose 500 ml/ Amino Acids 850 ml/ Sterile Water 150 ml/Fat Emulsion Intravenous 250 ml/ Sodium Chloride 100 meq/Potassium Chloride 50 meq/Potassium Phosphate 15 mmole/Calcium Gluconate 15 meq/Magnesium Sulfate 10 meq/ Multivitamins 10 ml/ Trace Metals 3 ml/ Phytonadione 0.2 mg/ Famotidine 40 mg/ Nutrition (Parenteral) 1,856.821 mls @ 77.37 mls/hr CENTR 1700 COUNT INCLUDES THE [facility] Stop: 16:59 Dextrose 500 ml/ Amino Acids 850 ml/ Sterile Water 150 ml/Fat Emulsion Intravenous 250 ml/ Sodium Chloride 100 meq/Potassium Chloride 50 meq/Potassium Phosphate 15 mmole/Calcium Gluconate 15 meq/Magnesium Sulfate 10 meq/ Multivitamins 10 ml/ Trace Metals 1 ml/ Phytonadione 0.2 mg/ Famotidine 40 mg/ Nutrition (Parenteral) 1,854.821 mls @ 77.2 mls/hr CENTR 1700 COUNT INCLUDES [facility] Stop: 16:59 Lorazepam (Ativan Inj*) 0.5 mg IV BEDTIME PRN Reason: SLEEP Ondansetron HCl (Zofran Inj*) 4 mg IV Q6H PRN Reason: NAUSEA Vital Signs 05/14/17 05/14/17 05/14/17 16:00 16:36 20:00 Temperature 97.8 F Pulse Rate 59 Respiratory 23 18 Rate Blood Pressure 105/65 (mmHg) O2 Sat by Pulse 99 99 Oximetry 05/15/17 05/15/17 04:26 08:04 Temperature 98.5 F Pulse Rate 60 73 Respiratory 20 16 Rate Blood Pressure 88/53 (mmHg) O2 Sat by Pulse 99 97 Oximetry Oxygen Devices in Use Now: None Appearance: NAD, sitting up in bed Ears/Nose/Mouth/Throat: Mucous Membranes Moist Respiratory: Symmetrical Chest Expansion and Respiratory Effort, Clear to Auscultation Cardiovascular: NL Sounds; No Murmurs; No JVD, RRR Abdominal: NL Sounds; No Tenderness; No Distention Extremities: No Edema Skin: No Rash or Ulcers Neurological: Alert and Oriented x 3 - oriented to Person, place and year, forgetful Lines/Tubes/Other Access: Clean, Dry and Intact PICC Line - site benign Nutrition: Taking PO's Result Diagrams: 05/09/17 04:58 05/12/17 05:48 Additional Lab and Data: Assess/Plan/Problems-Billing Assessment: Mr. Obregon is a 77 year old male with PMH significant for a seizure disorder presenting with severe weight loss and dysphagia to solid foods. 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 Deciding whether to pursue J-tube placement for severe protein-calorie malnutrition prior to a potential chemo+ surgery vs J-tube for nutrition w/o further treatment vs discharge with no intervention. Poor short term memory likely secondary to nutritional deficits. Eventual outpatient PET for full staging if Pt decides to pursue treatment. - Patient Problems (1) Esophageal adenocarcinoma Code(s): C15.9 - MALIGNANT NEOPLASM OF ESOPHAGUS, UNSPECIFIED SNOMED Code(s): 585378356 Comment: - Appreciate heme/onc consult - General surgery was consulted for J-tube placement, but patient and family still deciding. - Sister Kassie Ross may have to ultimately decide as surrogate decision maker, given patient's short term memory deficits. - Plan for outpatient PET scan for final staging if they don't chose Hospice. (2) Esophageal obstruction Code(s): K22.2 - ESOPHAGEAL OBSTRUCTION SNOMED Code(s): 213796090 Comment: - Family considering J-tube, plan to further discuss with Dr. Puente later today - Continue TPN via PICC (3) Severe malnutrition Code(s): E43 - UNSPECIFIED SEVERE PROTEIN-CALORIE MALNUTRITION SNOMED Code(s) : 61251268 Comment: - Secondary to progressive esophogeal obstruction. - Severe with 47 lb weight loss (30%) over multiple weeks (pt won't clearly specify) - Evidence of visible muscle wasting, dehydration. - On TPN now, plan for possible J-tube (4) Seizure disorder Code(s): G40.909 - EPILEPSY, UNSP, NOT INTRACTABLE, WITHOUT STATUS EPILEPTICUS SNOMED Code(s): 507421766 Comment: - Continue IV levetiracetam. (5) Junctional rhythm Code(s): I49.8 - OTHER SPECIFIED CARDIAC ARRHYTHMIAS SNOMED Code(s): 98917849 Comment: - Change on EKG 05/08 - Note BP significantly lower in R arm, staff will only use L arm for BP. - Denies chest pain. - Echocardiogram shows normal LV wall motion, EF 50-55%, slightly dilated RA, mild to mod MR and TR. (6) DVT prophylaxis Code(s): ASC7480 - SNOMED Code(s): 811811191 Comment: SCDs (7) DNR (do not resuscitate) Status and Disposition: Inpatient. Awaiting possible J-tube (+/- pursuit of treatment) vs complete palliative route decision. The former would include plan for outpatient staging PET.
--- NOTE | 2017-05-15 14:37 | PN ---
Progress Note - Progress Note Date of Service: 05/15/17 SOAP: Subjective: []No change. Has been tolerating PICC. Has no change in pain. Has still not decided about hospice and J-tube. Acetaminophen (Tylenol Supp*) 650 mg VT Q6H PRN PRN Reason: FEVER/PAIN Last Admin: 05/12/17 09:28 Dose: 650 mg Albuterol (Ventolin 2.5 Mg/3 Ml Neb.Angeli*) 2.5 mg INH Q2H PRN PRN Reason: SOB/WHEEZING Heparin Sodium (Porcine) (Heparin Flush Picc/Ml/Cvc(*)) 0 ml FLUSH 0600,1800 [facility] PRN Reason: Protocol Last Admin: 05/15/17 06:03 Dose: Not Given Levetiracetam 750 mg/ Sodium (Chloride) 107.5 mls @ 430 mls/hr IVPB DAILY [facility] Last Admin: 05/15/17 08:57 Dose: 430 mls/hr Levetiracetam 1,500 mg/ Sodium (Chloride) 115 mls @ 460 mls/hr IVPB DAILY@1800 [facility] Last Admin: 05/14/17 16:42 Dose: 460 mls/hr Dextrose 500 ml/ Amino Acids 850 ml/ Sterile Water 150 ml/Fat Emulsion Intravenous 250 ml/ Sodium Chloride 100 meq/Potassium Chloride 50 meq/Potassium Phosphate 15 mmole/Calcium Gluconate 15 meq/Magnesium Sulfate 10 meq/ Multivitamins 10 ml/ Trace Metals 3 ml/ Phytonadione 0.2 mg/ Famotidine 40 mg/ Nutrition (Parenteral) 1,856.821 mls @ 77.37 mls/hr CENTR 1700 [facility] Stop: 05/15/17 16:59 Dextrose 500 ml/ Amino Acids 850 ml/ Sterile Water 150 ml/Fat Emulsion Intravenous 250 ml/ Sodium Chloride 100 meq/Potassium Chloride 50 meq/Potassium Phosphate 15 mmole/Calcium Gluconate 15 meq/Magnesium Sulfate 10 meq/ Multivitamins 10 ml/ Trace Metals 1 ml/ Phytonadione 0.2 mg/ Famotidine 40 mg/ Nutrition (Parenteral) 1,854.821 mls @ 77.2 mls/hr CENTR 1700 [facility] Stop: 05/16/17 16:59 Lorazepam (Ativan Inj*) 0.5 mg IV BEDTIME PRN PRN Reason: SLEEP Ondansetron HCl (Zofran Inj*) 4 mg IV Q6H PRN PRN Reason: NAUSEA Last Admin: 05/05/17 09:46 Dose: 4 mg Objective: [] Vital Signs Temp Pulse Resp BP Pulse Ox 98.5 F 73 16 88/53 97 05/15/17 08:04 05/15/17 08:04 05/15/17 08:04 05/15/17 08:04 05/15/17 08:04 Exam differed. Assessment: []77 year old with new diagnosis of esophageal cancer. Follow up from vist on Monday, he has not decded on a course of therapy. Recommendation is for J- tube for tube feeds. Will then need PET scan for full staging. 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 I am not sure he will consent to traditional therapy. If he does will avoid Cisplatin given severity of side effects. Potentially Carboplatin and 5FU or 5FU single agent with XRT. We again discussed three options: J-tube followed by treatment of cancer, J- tube for nutrition without treatment of cancer, withdrawal of all care and comfort measures. I advised he first decide if he is interested in treating cancer. If so then plan as above. He is not going to treat cancer decision about J tube is one of quality of life. If life with tube feeing for a 6-18 months before cancer progressed is not appealing, withdrawal of care is reasonable. At this time he does not want feeding tube or treatment of cancer. Discussed hospice, at home and in residence. Plan: []1. Continue TPN and PICC for now 2. Consultation for Hospice 3. DNR/DNI with MOLST filled out. 4. He will continue to ponder his options.
--- NOTE | 2017-05-15 16:10 | CONSULT ---
Consult Consult: Medical Decision Making Capacity S: Psychiatry is asked to determine capacity on this 77 y.o. single, white male with a history of worsening esophageal cancer, currently admitted to the 4th floor secondary to worsening swallowing and related failure to thrive. Patient would require placement of J-PEG, chemotherapy and radiation to improve but primary team notes that he is often confused and that his sister favors palliative care to spare him the side effects associated with definitive treatment. On exam the patient is a little irritable and has difficulty answering some of my questions. He sarcastically offers me some of his TPN, stating "I'd offer you something to eat but my throat's closed so they don't give me any." His sister and [id number] are present but do not interact much. He expresses understanding of the above-mentioned treatments and, when asked about the risks of not accepting them, he states "I won't be able to eat anything and I'll pass away." He states he is weighing the options of definitive versus palliative care and hasn't made up his mind yet. O: patient nows year and day of week but not the month or date. He is oriented to town, state, floor and facility as well as county. attention is good A/P: Capacity: psychiatry notes that the patient is able to roughly describe the treatments being offered as well as their alternatives and risks for refusal. He is deemed to have capacity. Capacity can change, based on mentation, so Psychiatry can be reconsulted if any changes happen in his cognitive functioning.
--- NOTE | 2017-05-15 21:15 | CONS ---
CC: Esther Montano MD* PALLIATIVE CARE CONSULTATION REPORT: DATE OF CONSULT: 05/15/17 PRIMARY CARE PHYSICIAN: Esther Montano MD REFERRING PROVIDER FOR CONSULT: Erin Farrell NP HISTORY OF PRESENT ILLNESS: This is a 77-year-old male with a past medical history of seizure disorder, who presented to the emergency room on 05/04/17 with difficulty swallowing and weight loss. This has been going on for several months. He was at 80 kg, now is at 50 kg. On admission, the patient had a CAT scan of his chest, abdomen, and pelvis that showed diffuse esophageal distention with debris and contrast, maybe secondary to achalasia or an obstructing mass at the GE junction. The patient was admitted n.p.o. with GI consultation. The patient had an EGD done with biopsies that showed poorly differentiated invasive adenocarcinoma involving gastric cardia-type mucosa of the esophagus. Dr. Puente from Oncology was then consulted, who recommended he needs a full PET scan for staging as an outpatient and that he would likely need radiation and chemotherapy and curative rate is 50%. In the meantime, the patient was started on TPN via PEG placement. There was also a discussion of getting a J-tube in place. Dr. Arango was then consulted on the from Surgery, who discussed placing a J-tube. Throughout this hospitalization, it seems that the patient has been going back and forth regarding hospice versus J- tube only and no treatment versus J-tube and treatment on my encounter. The sister, Kassie Ross, the healthcare proxy is present. He states he understands that he is here to get feeds through the IV. When I asked what his prognosis was, he states that it was my job to tell him and he does understand that he has esophageal cancer. I asked him what his decision was and he told me that he did not realize he needed to have a decision today. When I explained to him options for his treatment including chemotherapy and radiation and a J-tube, he said he was interested in pursuing this. When I asked him if the risks and benefits were discussed regarding treatment, he said no one has told him anything. I spoke with the sister outside of the room, Kassie, who states people have been in multiple times explaining the risks, benefits, and side effects of treatment. She is worried that with his significant short-term memory loss and his confusion that he does not really understand his decisions. She is interested in bringing him home with hospice. The patient denies any shortness of breath. He does have some left-sided pain intermittently. Otherwise, remaining review of systems is negative. PAST MEDICAL HISTORY: 1. Seizure disorder. 2. Distal esophageal cancer, T3 disease by virtue of obstruction. INPATIENT MEDICATIONS: 1. Tylenol 650 mg every 6 hours as needed. 2. Albuterol neb inhaled q.2 hours as needed. 3. Keppra 750 mg daily and 1500 mg daily. 4. Ativan 0.5 mg at bedtime as needed. 5. Zofran 4 mg every 6 hours as needed. ALLERGIES: No known drug allergies. FAMILY HISTORY: Mother had colon cancer in her 40's. No other malignancy in the family. SOCIAL HISTORY: The patient recently , moved from [place], in with his sister and her family, Kassie Ross, who is the healthcare proxy back in July of 2016. He is a former smoker, occasional alcohol, no illicit drug use. 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 His MOLST form recently changed to DNR/DNI comfort measures. No feeding tube signed by the patient today. REVIEW OF SYSTEMS: A 14-point review of systems is as mentioned in the HPI, otherwise negative. PHYSICAL EXAM: Vitals: Temp 98.5, pulse rate 73, respiratory rate 16, oxygen saturation 97% on room air, blood pressure 88/53. General: Cachectic, malnourished male, in no acute distress with the sister at the bedside. HEENT: Head normocephalic, bitemporal muscle wasting. Pupils equal and reactive, anicteric. Oropharynx: Mucous membranes moist. No erythema or exudate. Neck : Supple. No lymphadenopathy. Cardiac: Regular rate and rhythm. Soft systolic murmur heard throughout. Respiratory: Diminished breath sounds. No wheezing, rhonchi, or rales. Abdomen: Cachectic, concave abdomen. No masses or tenderness. Extremities: No clubbing, cyanosis, or edema. +1 DPs. Neurological: Alert and oriented x2. Oriented to place and self. No gross focal neurological deficits. LABORATORY DATA: White count 4.4, hemoglobin 12.8, hematocrit 37, platelets 261. INR 0.96. Sodium 139, potassium 3.9, chloride 110, bicarb 25, BUN 19, creatinine 0.56. Albumin 3.1. ASSESSMENT AND PLAN: This is a 77-year-old male with past medical history of seizure disorder, who presented to the emergency room on 05/04/17 with weight loss and difficulty tolerating p.o., found to have stage III esophageal adenocarcinoma. The patient has been presented options including chemo radiation with J-tube or J- tube with no treatment or no treatment at all. It appears that the patient has been going back and forth regarding a decision. I questioned his capacity based on his understanding of his medical conditions and the consequences of his decisions. His sister is worried about his confusion and his ability to make decisions and is interested in pursuing hospice. He is eligible for hospice with a principal diagnosis of stage III esophageal carcinoma and it appears that the sister would like to take him home with hospice care. Prior to proceeding to any further decision, I think having Psychiatry evaluate him for medical capacity is appropriate and Dr. Hallman is going to evaluate the patient today. Once that determination is made, we can proceed further. Thank you for this consultation. I will follow up with you. TIME SPENT: Greater than 90 minutes was spent doing this consultation, more than half the time spent in direct patient contact. [id number]/[facility] #: [id number] MARICEL
--- NOTE | 2017-05-16 13:26 | PN ---
Subjective Date of Service: 05/16/17 Interval History: Patient seen and examined at bedside. Denies fever, chills, shortness of breath , chest discomfort, N/V/D. Pt and family are waiting for a family meeting with Hospice this afternoon. Plan will be for possible discharge to home on Hospice tomorrow afternoon. Family History: Unchanged from Admission Social History: Unchanged from Admission Past Medical History: Unchanged from Admission Objective Active Medications: Acetaminophen (Tylenol Supp*) 650 mg ME Q6H PRN Reason: FEVER/PAIN Albuterol (Ventolin 2.5 Mg/3 Ml Neb.Angeli*) 2.5 mg INH Q2H PRN Reason: SOB/ WHEEZING Heparin Sodium (Porcine) (Heparin Flush Picc/Ml/Cvc(*)) 0 ml FLUSH 0600,1800 [facility] Levetiracetam 750 mg/ Sodium (Chloride) 107.5 mls @ 430 mls/hr IVPB DAILY [facility] Levetiracetam 1,500 mg/ Sodium (Chloride) 115 mls @ 460 mls/hr IVPB DAILY@1800 [facility] Dextrose 500 ml/ Amino Acids 850 ml/ Sterile Water 150 ml/Fat Emulsion Intravenous 250 ml/ Sodium Chloride 100 meq/Potassium Chloride 50 meq/Potassium Phosphate 15 mmole/Calcium Gluconate 15 meq/Magnesium Sulfate 10 meq/ Multivitamins 10 ml/ Trace Metals 1 ml/ Phytonadione 0.2 mg/ Famotidine 40 mg/ Nutrition (Parenteral) 1,854.821 mls @ 77.2 mls/hr CENTR 1700 [facility] Stop: 05/16/17 16:59 Lorazepam (Ativan Inj*) 0.5 mg IV BEDTIME PRN Reason: SLEEP Ondansetron HCl (Zofran Inj*) 4 mg IV Q6H PRN Reason: NAUSEA Vital Signs 05/15/17 05/15/17 05/15/17 15:55 16:28 20:00 Temperature 97.6 F Pulse Rate 78 Respiratory 18 18 Rate Blood Pressure 93/63 (mmHg) O2 Sat by Pulse 96 100 Oximetry 05/15/17 05/15/17 05/16/17 20:02 23:01 02:13 Temperature 97.9 F Pulse Rate 83 82 Respiratory 18 20 Rate Blood Pressure 90/66 (mmHg) O2 Sat by Pulse 95 95 95 Oximetry 05/16/17 05/16/17 05/16/17 02:14 07:33 08:00 Temperature 98.1 F Pulse Rate 77 Respiratory 16 17 Rate Blood Pressure 82/57 (mmHg) O2 Sat by Pulse 95 98 98 Oximetry Oxygen Devices in Use Now: None Appearance: NAD, laying in bed Respiratory: Symmetrical Chest Expansion and Respiratory Effort, Clear to Auscultation Cardiovascular: NL Sounds; No Murmurs; No JVD, RRR Abdominal: NL Sounds; No Tenderness; No Distention Extremities: No Edema Skin: No Rash or Ulcers Neurological: Alert and Oriented x 3 - , forgetful, NL Muscle Strength and Tone Lines/Tubes/Other Access: Clean, Dry and Intact Peripheral IV - site benign, Clean, Dry and Intact PICC Line - site benign Nutrition: Taking PO's Result Diagrams: 05/09/17 04:58 05/12/17 05:48 Additional Lab and Data: Assess/Plan/Problems-Billing Assessment: Mr. Obregon is a 77 year old male with PMH significant for a seizure disorder presenting with severe weight loss and dysphagia to solid foods. 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 Deciding whether to pursue J-tube placement for severe protein-calorie malnutrition prior to a potential chemo+ surgery vs J-tube for nutrition w/o further treatment vs discharge with no intervention. Poor short term memory likely secondary to nutritional deficits. - Patient Problems (1) Esophageal adenocarcinoma Code(s): C15.9 - MALIGNANT NEOPLASM OF ESOPHAGUS, UNSPECIFIED SNOMED Code(s): 406269825 Comment: - Appreciate heme/onc consult - General surgery was consulted for J-tube placement, but patient and family still deciding. - Sister Kassie Ross may have to ultimately decide as surrogate decision maker, given patient's short term memory deficits. - Plan for outpatient PET scan for final staging if they don't choose Hospice. - Plan at this point to discharge home on hospice (2) Esophageal obstruction Code(s): K22.2 - ESOPHAGEAL OBSTRUCTION SNOMED Code(s): 327686234 Comment: - Continue TPN via PICC today at a decreased rate, plan to discontinue tomorrow (3) Severe malnutrition Code(s): E43 - UNSPECIFIED SEVERE PROTEIN-CALORIE MALNUTRITION SNOMED Code(s) : 18740578 Comment: - Secondary to progressive esophogeal obstruction. - Severe with 47 lb weight loss (30%) over multiple weeks (pt won't clearly specify) - Evidence of visible muscle wasting, dehydration. - On TPN now, plan to discontinue tomorrow (4) Seizure disorder Code(s): G40.909 - EPILEPSY, UNSP, NOT INTRACTABLE, WITHOUT STATUS EPILEPTICUS SNOMED Code(s): 189795764 Comment: - Continue IV levetiracetam. (5) Junctional rhythm Code(s): I49.8 - OTHER SPECIFIED CARDIAC ARRHYTHMIAS SNOMED Code(s): 95801826 Comment: - Change on EKG 05/08 - Note BP significantly lower in R arm, staff will only use L arm for BP. - Denies chest pain. - Echocardiogram shows normal LV wall motion, EF 50-55%, slightly dilated RA, mild to mod MR and TR. (6) DVT prophylaxis Code(s): FKG7644 - SNOMED Code(s): 758566488 Comment: SCDs (7) DNR (do not resuscitate) Status and Disposition: Inpatient. Plan for possible discharge to home on Hospice tomorrow.
[2017-05-16] MEDS ORDERED: TPN* 24 HR with Dextrose 50% Water* 500 ML, Amino Acid Infusion 10%* 850 ML, Sterile Wa... CENTR SCH ×14 (17:00)
[2017-05-16] MEDS: Acetaminophen SUPP* 650 MG SUPP PR PRN (23:31)
--- NOTE | 2017-05-17 08:20 | PN ---
Progress Note - Progress Note Date of Service: 05/16/17 SOAP: Subjective: Pt seen last night for evaluation prior to feeding tube placement. Pt stated immediately that he would not be going to surgery. He stated that he has not spoken to a surgeon regarding this procedure. \\ I explained to him the procedure and answered his questions. Pt has disorganized thinking, repeating similar questions and moving off topic from our discussion regarding his inability to eat. Assessment: Obstructing esophageal cancer Plan: feeding tube here, elsewhere, or hospice appear to be patients only options. Either option is reasonable. Recall when and if patient agrees to proceed. Please have patient sign a consent for "feeding jejunostomy" prior to recalling us; Our surgery dept can create new consent before to surgery.
--- NOTE | 2017-05-17 10:00 | PN ---
Subjective Date of Service: 05/17/17 Interval History: Patient seen and examined at bedside. Denies fever, chills, shortness of breath , chest discomfort, N/V/D. Pt doesn't want a J tube placed and would still like to go home on hospice in the next day or two. Family History: Unchanged from Admission Social History: Unchanged from Admission Past Medical History: Unchanged from Admission Objective Active Medications: Acetaminophen (Tylenol Supp*) 650 mg MD Q6H PRN Reason: FEVER/PAIN Albuterol (Ventolin 2.5 Mg/3 Ml Neb.Angeli*) 2.5 mg INH Q2H PRN Reason: SOB/ WHEEZING Heparin Sodium (Porcine) (Heparin Flush Picc/Ml/Cvc(*)) 0 ml FLUSH 0600,1800 [facility] Reason: Protocol Levetiracetam 750 mg/ Sodium (Chloride) 107.5 mls @ 430 mls/hr IVPB DAILY RADHIKA Levetiracetam 1,500 mg/ Sodium (Chloride) 115 mls @ 460 mls/hr IVPB DAILY@1800 [facility] Dextrose 500 ml/ Amino Acids 850 ml/ Sterile Water 150 ml/Fat Emulsion Intravenous 250 ml/ Sodium Chloride 100 meq/Potassium Chloride 50 meq/Potassium Phosphate 15 mmole/Calcium Gluconate 15 meq/Magnesium Sulfate 10 meq/ Multivitamins 10 ml/ Trace Metals 1 ml/ Phytonadione 0.2 mg/ Famotidine 40 mg/ Nutrition (Parenteral) 1,854.821 mls @ 40 mls/hr CENTR 1700 [facility] Stop: 05/17/17 16:59 Lorazepam (Ativan Inj*) 0.5 mg IV BEDTIME PRN Reason: SLEEP Ondansetron HCl (Zofran Inj*) 4 mg IV Q6H PRN Reason: NAUSEA Vital Signs 05/16/17 05/16/17 05/16/17 15:28 15:53 16:00 Temperature 98.2 F Pulse Rate 79 71 Respiratory 18 22 Rate Blood Pressure 88/55 (mmHg) O2 Sat by Pulse 97 100 97 Oximetry 05/16/17 05/16/17 05/17/17 18:00 22:51 02:48 Temperature Pulse Rate 70 Respiratory 16 20 Rate Blood Pressure 88/68 (mmHg) O2 Sat by Pulse 97 Oximetry 05/17/17 05/17/17 08:00 08:19 Temperature 98.1 F Pulse Rate 57 Respiratory 12 12 Rate Blood Pressure 77/32 (mmHg) O2 Sat by Pulse 98 98 Oximetry Oxygen Devices in Use Now: None Appearance: NAD, laying in bed Respiratory: Symmetrical Chest Expansion and Respiratory Effort, Clear to Auscultation Cardiovascular: NL Sounds; No Murmurs; No JVD, RRR Abdominal: NL Sounds; No Tenderness; No Distention Extremities: No Edema Skin: No Rash or Ulcers Neurological: Alert and Oriented x 3, NL Muscle Strength and Tone Lines/Tubes/Other Access: Clean, Dry and Intact PICC Line - site benign Result Diagrams: 05/09/17 04:58 05/12/17 05:48 Additional Lab and Data: Assess/Plan/Problems-Billing Assessment: Mr. Obregon is a 77 year old male with PMH significant for a seizure disorder presenting with severe weight loss and dysphagia to solid foods. 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 Deciding whether to pursue J-tube placement for severe protein-calorie malnutrition prior to a potential chemo+ surgery vs J-tube for nutrition w/o further treatment vs discharge with no intervention. Poor short term memory likely secondary to nutritional deficits. - Patient Problems (1) Esophageal adenocarcinoma Code(s): C15.9 - MALIGNANT NEOPLASM OF ESOPHAGUS, UNSPECIFIED SNOMED Code(s): 168074923 Comment: - Appreciate heme/onc consult - General surgery was consulted for J-tube placement, patient and family declining tube placement at this time. - Sister Kassie Ross may have to ultimately decide as surrogate decision maker, given patient's short term memory deficits. - Plan at this point to discharge home on hospice (2) Esophageal obstruction Code(s): K22.2 - ESOPHAGEAL OBSTRUCTION SNOMED Code(s): 483370196 Comment: - Discontinue TPN today (3) Severe malnutrition Code(s): E43 - UNSPECIFIED SEVERE PROTEIN-CALORIE MALNUTRITION SNOMED Code(s) : 33553106 Comment: - Secondary to progressive esophogeal obstruction. - Severe with 47 lb weight loss (30%) over multiple weeks (pt won't clearly specify) - Evidence of visible muscle wasting, dehydration. - Discontinue TPN today (4) Seizure disorder Code(s): G40.909 - EPILEPSY, UNSP, NOT INTRACTABLE, WITHOUT STATUS EPILEPTICUS SNOMED Code(s): 203040645 Comment: - Change to liquid levetiracetam. (5) Junctional rhythm Code(s): I49.8 - OTHER SPECIFIED CARDIAC ARRHYTHMIAS SNOMED Code(s): 15376190 Comment: - Change on EKG 05/08 - Note BP significantly lower in R arm, staff will only use L arm for BP. - Denies chest pain. - Echocardiogram shows normal LV wall motion, EF 50-55%, slightly dilated RA, mild to mod MR and TR. (6) DVT prophylaxis Code(s): NRZ9186 - SNOMED Code(s): 829546184 Comment: SCDs (7) DNR (do not resuscitate) Status and Disposition: Inpatient. Plan for possible discharge to home on Hospice later today or tomorrow.
--- NOTE | 2017-05-17 13:26 | PN ---
Progress Note - Progress Note Date of Service: 05/17/17 SOAP: Subjective: []Feels fine. No pain. Acetaminophen (Tylenol Supp*) 650 mg VA Q6H PRN PRN Reason: FEVER/PAIN Last Admin: 05/16/17 23:31 Dose: 650 mg Albuterol (Ventolin 2.5 Mg/3 Ml Neb.Angeli*) 2.5 mg INH Q2H PRN PRN Reason: SOB/WHEEZING Heparin Sodium (Porcine) (Heparin Flush Picc/Ml/Cvc(*)) 0 ml FLUSH 0600,1800 [facility] PRN Reason: Protocol Last Admin: 05/17/17 04:46 Dose: Not Given Levetiracetam 750 mg/ Sodium (Chloride) 107.5 mls @ 430 mls/hr IVPB DAILY [facility] Last Admin: 05/17/17 09:18 Dose: 430 mls/hr Levetiracetam 1,500 mg/ Sodium (Chloride) 115 mls @ 460 mls/hr IVPB DAILY@1800 [facility] Last Admin: 05/16/17 18:06 Dose: 460 mls/hr Dextrose 500 ml/ Amino Acids 850 ml/ Sterile Water 150 ml/Fat Emulsion Intravenous 250 ml/ Sodium Chloride 100 meq/Potassium Chloride 50 meq/Potassium Phosphate 15 mmole/Calcium Gluconate 15 meq/Magnesium Sulfate 10 meq/ Multivitamins 10 ml/ Trace Metals 1 ml/ Phytonadione 0.2 mg/ Famotidine 40 mg/ Nutrition (Parenteral) 1,854.821 mls @ 40 mls/hr CENTR 1700 [facility] Stop: 05/17/17 16:59 Last Admin: 05/16/17 17:53 Dose: 40 mls/hr Lorazepam (Ativan Inj*) 0.5 mg IV BEDTIME PRN PRN Reason: SLEEP Ondansetron HCl (Zofran Inj*) 4 mg IV Q6H PRN PRN Reason: NAUSEA Last Admin: 05/05/17 09:46 Dose: 4 mg Objective: [] Vital Signs Temp Pulse Resp BP Pulse Ox 98.1 F 57 12 77/32 98 05/17/17 08:19 05/17/17 08:19 05/17/17 08:19 05/17/17 08:19 05/17/17 08:19 Exam differed. Assessment: []77 year old with new diagnosis of esophageal cancer. After extensive discussion he wants to go home on hospice. Plan: []1. DC IVF and pull PICC. 2. Home with Hospice 3. DNR/DNI with [facility] filled out. 4. History of seizures, diazepam 10 mg rectal gell prn on discharge
--- NOTE | 2017-05-17 14:37 | PN ---
Progress Note - Progress Note Date of Service: 05/17/17 Note: Palliative care follow up note: Patient now states he is clear that he wants to go home with hospice. He is not interested in surgery or treatment for his cancer. Discussed getting in his antieplipetic medications. He is interested in using the suppository. Discussed he can take PO as tolerated which he states is minimal to begin with. Family at the bedside. Hospice referral sent.
[2017-05-17 17:19] VITALS: BP 90/69
--- NOTE | 2017-05-18 05:06 | DS ---
CC: Dr. Montano* DISCHARGE SUMMARY: DATE OF ADMISSION: 05/04/17 DATE OF DISCHARGE: 05/17/17 ATTENDING PHYSICIAN: Dr. Joseph Dunne* (dictated by Mila Amaral NP). PRIMARY CARE PROVIDER: Dr. Esther Montano. PRIMARY DIAGNOSES: 1. Esophageal adenocarcinoma with esophageal obstruction. 2. Severe malnutrition. 3. Junctional rhythm. SECONDARY DIAGNOSIS: Seizure disorder. CONSULTATIONS WHILE IN THE HOSPITAL: 1. Dr. Mayra Escalante with Gastroenterology. 2. Dr. Diaz Puente with Oncology. 3. Dr. Brad Arango and Dr. Brayden Price with General Surgery. 4. Dr. Dominick Hallman with Psychiatry. 5. Dr. Miesha Tapia with palliative care services. PROCEDURES WHILE IN THE HOSPITAL: 1. Status post esophagogastroduodenoscopy by Dr. Mayra Escalante on 05/04/17 showing extensive amount of food and debris noted in the upper esophagus, unable to remove due to high risk of aspiration, dilated proximal and mid esophagus. The procedure was aborted due to a higher risk of aspiration. 2. Esophagogastroduodenoscopy to second portion of duodenum, again on 05/04/[address] Mayra Escalante and with general anesthesia. Findings: Normal-appearing duodenum to the second portion with biopsies. Pangastritis with biopsies from the antrum and body to rule out H. pylori. Mosaic tile-like appearance of the gastric mucosa located in the fundus and cardia. Partially obstructed circumferential mass extending from 45 cm to 35 cm of the incisor encompassing the cardia of the stomach and the distal esophagus. Multiple cold forceps biopsies were obtained. White plaque-like exudate distal esophagitis with biopsies. Dilated mild and proximal esophagus. Disimpaction of food impaction. STUDIES WHILE IN THE HOSPITAL: 1. Chest, abdomen, and pelvis CT on 05/03/17. Radiologist's impression: Diffuse dilation of the esophagus to the level of the gastroesophageal junction , at the level, there is an esophageal wall thickening. Differential diagnosis would include an esophageal mass versus achalasia. Recommend endoscopy for further evaluation. Multiple bilateral thyroid nodules. Recommend a followup thyroid ultrasound for further evaluation. Findings consistent with old granulomatous disease. Small hypodense hepatic and splenic lesions too small to characterize by CT, possibly representing cyst. Recommend a followup hepatic and splenic ultrasound for further evaluation. Cystic lesion in the pancreatic head. Recommend an MRI of the pancreas without and with contrast for further evaluation. Multiple bilateral nonobstructing renal calculi. Hyperdense right renal lesion consistent with a complex cyst or a solid abnormality. Recommend a renal ultrasound for further evaluation. 2. Transthoracic echocardiogram on 05/04/17. Earth Burner's conclusion: The left ventricular chamber size is normal. There is increased basal septal hypertrophy noted without evidence of an increased gradient across the left ventricular outflow tract. Global left ventricular wall motion and contractility are within normal limits. Left ventricular systolic function is at the lower limits of normal. Estimated ejection fraction is 50% to 55%, focal relative hypokinesis of distal anterior wall and only not confirmed in other images. The right atrium is slightly dilated. There is a trace of aortic regurgitation, [id number] mitral regurgitation, [id number] tricuspid regurgitation, trace pulmonic regurgitation. 3. Esophagus x-ray on 05/05/17. Radiologist's impression: Limited study. The esophagus is patulous. No contrast is noted to pass distal to the JE junction into the stomach. 4. Chest x-ray on 05/09/17. Radiologist's impression: Lines and tubes as above. No active cardiopulmonary disease. 5. Chest x-ray on 05/11/17. No active disease. PICC catheter projection over superior vena cava. DISCHARGE MEDICATIONS: New home medications: 1. Diazepam 10 mg per rectum once as needed for seizure and may repeat once in 4 to 12 hours if needed, maximum daily dose 2 suppositories. 2. Acetaminophen suppositories 650 mg p.r. every 6 hours as needed for fever or pain. Changed home medications: Keppra changed from tablets to liquid 750 mg oral in the a.m. and 1500 mg oral in the evening. HISTORY OF PRESENT ILLNESS/HOSPITAL COURSE: Mr. 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 The patient admitted to intermittent gastric discomfort but denied any gastric distention or relation to a gastric discomfort with any activity or eating. The patient was very stoic and evasive of answering questions. The patient has recently lost a fair amount of weight but was not willing to discuss the amount of weight that he had lost. The patient's difficulty with eating had been initially noticed around December and has accelerated over the past 2 months. He denied any associated symptoms such as chest pain, shortness of breath, nausea, or sweats. The patient had presented to the emergency room for further evaluation of his symptoms. While in the emergency room, the patient had an EKG that was unremarkable with the exception of nonspecific inferolateral ST-T flattening. He had a chest, abdomen, and pelvis CT showing a diffuse esophageal distention with debris and contrast thought maybe to be secondary to an obstructing mass. The patient's other labs were fairly unremarkable. He was noted to have a troponin of 0.07 and a repeat troponin of 0.35. A urinalysis that was fairly unremarkable. The patient was also noted to be malnourished and the hospitalists were asked to evaluate the patient for admission. While in the hospital, the patient underwent a transthoracic echocardiogram. He was seen in consultation by Gastroenterology, who performed two EGDs, one under general anesthesia. He was found to have an obstructing esophageal mass and biopsies were obtained. The patient's biopsies revealed at the distal esophagus, a poorly differentiated adenocarcinoma, some gastroesophageal transition zone mucosa with erosion esophagitis, gastric cardia-type mucosa with extensive goblet cell/interstitial metaplasia with focal high-grade dysplasia. The patient was then seen in consultation by Dr. Diaz Puente with Oncology. It was discussed with the patient the possibility of treatment versus palliative care. The patient was also seen in consultation by Dr. Brad Arango for possible J-tube placement. The patient was unable to take oral intake due to his significant esophageal obstruction. The patient spent a lot of time weighing over his options. Due to some short-term memory loss, the patient often needed to review information he had previously received. The patient's sister was requesting to take him home on hospice with no further interventions. Dr. Miesha Tapia was then asked to consult on the patient to give the family information to Palliative Care consult. At that time, the patient had then stated that he wanted treatment. Due to the patient going back and forth between wanting treatment and not wanting treatment, a Psychiatric consult was obtained with Dr. Dominick Hallman to determine the patient's capacity to make his own decisions for treatment going forward. The patient was deemed to have capacity. It was then decided that the patient would go home on hospice services with no feeding tube with TPN as the patient felt that this ruined his quality of life and he would rather quality of life over quantity of life. The patient was weaned off his TPN. The patient also wanted to continue on his antiepileptic medications. He did a trial of p.o. He was able to keep down some sips for a few minutes but then vomited the water back up. The patient requested to go home with oral Keppra to attempt if he was unable to take this. He requested a prescription for suppositories as needed for seizure activity. It is noted that the patient has a history of absent seizures. The patient has been set up to be signed on with hospice on Monday. He will be going home with his sister and [id number] to take care of him. Mr. Obregon is stable for discharged home today. Vital signs are as follows: Temperature 98.0, heart rate 95, respiratory rate 16, O2 sat 99% on room air, blood pressure 90/69. DISCHARGE PLAN: Mr. Obregon will be discharged to home with hospice sign-on later this week. Activity as tolerated. The patient can be on diet we discussed that if he wanted an ice cream, he could attempt that. If he wanted to try some clear liquids, he could attempt that, knowing that he would most likely vomit anything that he eats due to his obstruction. As far as the patient's seizure disorder, I have changed his Keppra to liquid Keppra 750 mg oral in the morning and 1500 mg oral in the evening. I will also send him in a prescription for diazepam 2 mg suppositories, 1 suppository for seizures and he may repeat in 4 to 12 hours if needed for seizure activity, maximum of 2 doses in a day. This is a summarized report of a complex medical history and hospital stay. For further details, please see the entire medical record. TIME SPENT: Time for this discharge was approximately 60 minutes, greater than half of that was spent with the patient, sister Kassie, and [id number] discussing discharge plans and instructions. CONDITION ON DISCHARGE: Stable. MILA AMARAL, SITE SURVEYOR [id number]/[facility] #: [id number] MARICEL
== END 2017-05-17 18:30 | disposition hospice, home (50) | DRG 374 ==
LOC: ED 20:46 → MEDTELE 05-04 04:52 → MED 05-06 22:27
PROVIDERS: ADMIT Hospitalist; ATTEND Internal Medicine
PROC: 0DB68ZX Excision of Stomach, Via Natural or Artificial Opening Endoscopic, Diagnostic (ICD-10-PCS; 2017-05-04)
PROC: 0DB38ZX Excision of Lower Esophagus, Via Natural or Artificial Opening Endoscopic, Diagnostic (ICD-10-PCS; 2017-05-04)
PROC: 0DJ08ZZ Inspection of Upper Intestinal Tract, Via Natural or Artificial Opening Endoscopic (ICD-10-PCS; 2017-05-04)
PROC: 0DB98ZX Excision of Duodenum, Via Natural or Artificial Opening Endoscopic, Diagnostic (ICD-10-PCS; principal; 2017-05-04 20:47)
PROC: 3E0436Z Introduction of Nutritional Substance into Central Vein, Percutaneous Approach (ICD-10-PCS; 2017-05-09)
PROC: 02HV33Z Insertion of Infusion Device into Superior Vena Cava, Percutaneous Approach (ICD-10-PCS; 2017-05-09)
PROC: 02PYX3Z Removal of Infusion Device from Great Vessel, External Approach (ICD-10-PCS; 2017-05-11)
DX: C15.5 Malignant neoplasm of lower third of esophagus (principal); E43 Unspecified severe protein-calorie malnutrition; E86.0 Dehydration; K86.2 Cyst of pancreas; R13.10 Dysphagia, unspecified; G40.909 Epilepsy, unspecified, not intractable, without status epilepticus; D64.9 Anemia, unspecified; K76.89 Other specified diseases of liver; K22.2 Esophageal obstruction; I08.3 Combined rheumatic disorders of mitral, aortic and tricuspid valves; D73.4 Cyst of spleen; Z68.1 Body mass index [BMI] 19.9 or less, adult; K20.8 Other esophagitis; R40.2412 Glasgow coma scale score 13-15, at arrival to emergency department; R74.8 Abnormal levels of other serum enzymes; K29.60 Other gastritis without bleeding; R62.7 Adult failure to thrive; Z66 Do not resuscitate; Z80.0 Family history of malignant neoplasm of digestive organs; Z72.89 Other problems related to lifestyle; Z87.891 Personal history of nicotine dependence; Z80.1 Family history of malignant neoplasm of trachea, bronchus and lung
CPT/HCPCS: 36415; 71010; 71260; 74177; 74220; 80048; 80053; 81003; 81015; 82465; 82533; 82657; 83605; 83735; 84100; 84134; 84443; 84478; 84484; 85025; 85610; 88305; 88342; 88360; 93005; 93306; 94760; 99157; 99223; 99232; 99233; A9270-GY; C1751; J0610; J1100; J2001; J2060; J2250; J2405; J2704; J3010; J3475; J3480; Q9967